=== PATIENT | female | born 1935 | race Caucasian/White ===

== ENCOUNTER 2017-04-15 10:32 | Day surgery (SDC) | payer MEDICARE ==
[~2017-04-15 10:32] MED LIST: LACTATED RINGERS 1,000 ML IV SCH
[2017-04-15] MEDS ORDERED: ALBUTEROL NEBULIZED 2.5 MG/3 ML INHALATION STA (11:27)
[2017-04-15] MEDS ORDERED: LIDOCAINE 2% (PF) 20 MG/ML 10 ML AMP INHALATION STA (11:27)
[2017-04-15] MEDS ORDERED: LIDOCAINE 2% (PF) 20 MG/ML 2 ML AMP INHALATION ONE (11:45)
[2017-04-15] MEDS ORDERED: LIDOCAINE 1% 20 ML VIAL (10MG/ML) FOR IV START INTRADERMA ONE (12:00)
[2017-04-15] MEDS ORDERED: PROPOFOL 10 MG/ML 20 ML VIAL IV ONE (12:02)
[2017-04-15] MEDS ORDERED: LIDOCAINE 1% INJ 10MG/ML (20 ML MDV) ONE (12:02)
[2017-04-15] MEDS ORDERED: LIDOCAINE 2% INJ 20 MG/ML INTRATRACH ONE (12:29)
--- NOTE | 2017-04-15 13:25 | P.PCN ---
Date of Procedure: 04/15/17 Preoperative Diagnosis: Recurrent asthma exacerbation, bronchitis Postoperative Diagnosis: Same Procedure(s) Performed: Flexible bronchoscopy, bronchial lavage of the lingula Anesthesia: MAC Surgeon: Moody Brice Estimated Blood Loss (ml): 0 Pathology: other Condition: stable Disposition: same day Operative Findings: This is a flexible bronchoscopy that was done in the bronchoscopy suite. This was done under conscious sedation. A timeout was obtained. A consent was signed. After achieving adequate sedation flexible scope was inserted to the right nostril. Examination of the posterior oropharynx the epiglottis and vocal cords was done. All of the upper airway structures were visualized and they're within normal limits. The epiglottis was within normal. Arytenoids were slightly swollen. The true vocal cords were also swollen and somewhat inflamed with some irregularities along the medial aspect of the vocal cords specially in the anterior one third. No polyps. No lesions. No tumors identified. A total of 2 mL of 1% Xylocaine was applied to the vocal cords and following that the bronchoscope was advanced into the upper trachea and examination of the tracheal bronchial tree was done. The visualized airways included the trachea, bilateral mainstem bronchi, right upper lobe bronchus, bronchus intermedius, right middle lobe bronchus, right lower lobe bronchus, left upper lobe bronchus, left lower lobe bronchus along with various segments and subsegments. There was diffuse inflammatory changes throughout the airways. The bronchial mucosa was inflamed and somewhat erythematous and few areas of scattered hemorrhagic spots were seen within the bronchial mucosal wall. Bronchoscope was wedged in the sputum of the lingula and bronchial lavage was done. A total of 80 mL of fluid was infused and 35 mL was suctioned back. At the end of the procedure the airway inspection was completed. No endobronchial tumors or lesions. Some loose secretions were encountered there were suctioned and aspirated without any major difficulties. No foreign bodies. Bronchoscope was removed and the patient was transferred recovery in stable condition. The bronchioloalveolar lavage will be sent for microbial analysis.
[2017-04-15 16:35] VITALS: BP 130/70; PULSE 73; RESP 16; TEMP 98.3
== END 2017-04-15 13:15 | disposition home or self-care (01) ==
LOC: ORWHC2ENDO 10:32
PROVIDERS: ATTEND Internal Medicine Critical Care Medicine
DX: J45.901 Unspecified asthma with (acute) exacerbation (principal); I26.99 Other pulmonary embolism without acute cor pulmonale; E03.9 Hypothyroidism, unspecified; E78.5 Hyperlipidemia, unspecified; M48.061 Spinal stenosis, lumbar region without neurogenic claudication; I10 Essential (primary) hypertension; Z79.01 Long term (current) use of anticoagulants; Z79.82 Long term (current) use of aspirin; Z79.891 Long term (current) use of opiate analgesic; Z79.51 Long term (current) use of inhaled steroids; Z79.52 Long term (current) use of systemic steroids; Z79.899 Other long term (current) drug therapy; Z87.891 Personal history of nicotine dependence
CPT/HCPCS: 94640; 88108; 88305; 31624; J2001 ×3; J2704

== ENCOUNTER → 2018-12-30 | Outpatient (CLI) | payer MEDICARE | END | disposition home or self-care (01) | LOC: LABWHC1 16:29 | PROVIDERS: ATTEND Internal Medicine Critical Care Medicine | DX: J45.40 Moderate persistent asthma, uncomplicated (principal) | CPT/HCPCS: 36415; 82785; 85008 ==

== ENCOUNTER 2019-07-10 09:47 | Observation (INO) | payer MEDICARE ==
[2019-07-10] MEDS ORDERED: SODIUM CHLORIDE 0.9% 1,000 ML IV ONE (09:56)
[2019-07-10] MEDS ORDERED: AMPICILLIN-SULBACTAM 3 GM in SODIUM CHLORIDE 0.9% 100 ML IVPB STA (09:56)
[2019-07-10] MEDS: SODIUM CHLORIDE 0.9% 1,000 ML IV SCH ×2 (10:13→20:38)
[2019-07-10 10:27] LABS: Basophils % (A) 0 %; Eosinophils # (A) 0.1 k/uL (0-0.7); Eosinophils % (A) 1 %; HCT 41.9 % (34.0-46.0); HGB 13.8 gm/dL (11.4-16.0); Lymphocytes # (A) 1.6 k/uL (1.0-4.8); Lymphocytes % (A) 12 %; MCH 30.6 pg (25.0-35.0); MCHC 32.8 g/dL (31.0-37.0); MCV 93.4 fL (80.0-100.0); Mean Platelet Volume 9.4; Monocytes # (A) 0.6 k/uL (0-1.0); Monocytes % (A) 4 %; Neutrophils # (A) 10.9 k/uL (1.3-7.7); Neutrophils % (A) 81 %; Platelet Count 199 k/uL (150-450); RBC 4.49 m/uL (3.80-5.40); RDW 13.8 % (11.5-15.5); WBC 13.4 k/uL (3.8-10.6)
--- NOTE | 2019-07-10 10:28 | ED ---
Extremity Problem HPI - General Stated complaint: cat bite Time Seen by Provider: 07/10/19 09:49 Source: EMS, RN notes reviewed, old records reviewed Mode of arrival: EMS Limitations: no limitations - History of Present Illness Initial comments: This is an 84-year-old female who presents today for evaluation with concern for cellulitis of her left forearm. Patient reports that she was bit by her cat 2 days ago. She was seen by her primary care doctor yesterday and was given updated tetanus and IM Rocephin. She was started on Augmentin. She's been taking those medications had a total of 3 doses of the Augmentin. She presents today via EMS for concern for worsening swelling. She denies any upper respiratory symptoms or cold symptoms at this time. Denies any fevers. - Related Data Home Medications Medication Instructions Recorded Confirmed Aspirin 81 mg PO HS 04/15/17 07/10/19 Atorvastatin [Lipitor] 20 mg PO HS 04/15/17 07/10/19 Levothyroxine Sodium [Synthroid] 50 mcg PO DAILY 04/15/17 07/10/19 Montelukast [Singulair] 10 mg PO HS 04/15/17 07/10/19 Ubidecarenone [Co Q-10] 200 mg PO HS 04/15/17 07/10/19 Warfarin Sodium [Coumadin] 3 mg PO MOWEFR 04/15/17 07/10/19 Amoxic-Pot Clav 875-125Mg 1 tab PO Q12HR 07/10/19 07/10/19 [Augmentin 875-125] Budesonide [Pulmicort] 0.5 mg INHALATION RT-BID 07/10/19 07/10/19 Cholecalciferol [Vitamin D3 (25 2,000 unit PO DAILY 07/10/19 07/10/19 Mcg = 1000 Iu)] Estrogens, Conjugated Cream 1 applicator VAGINAL DIRECTED 07/10/19 07/10/19 [Premarin Cream] Formoterol Fumarate [Perforomist] 20 mcg INHALATION RT-BID 07/10/19 07/10/19 Levalbuterol Hfa Inhaler [Xopenex 2 puff INHALATION RT-Q6H PRN 07/10/19 07/10/19 Hfa Inhaler] Metoprolol Succinate (ER) [Toprol 50 mg PO DAILY 07/10/19 07/10/19 Xl] Mupirocin 2% Oint [Bactroban 2% 1 applic TOPICAL DAILY 07/10/19 07/10/19 Oint] Omeprazole [PriLOSEC] 40 mg PO DAILY 07/10/19 07/10/19 Warfarin [Coumadin] 2 mg PO SUTUTHSA 07/10/19 07/10/19 cycloSPORINE [Restasis] 1 drop BOTH EYES BID 07/10/19 07/10/19 Allergies Allergy/AdvReac Type Severity Reaction Status Date / Time No Known Allergies Allergy Verified 07/10/19 11:00 Review of Systems ROS Statement: Those systems with pertinent positive or pertinent negative responses have been documented in the HPI. ROS Other: All systems not noted in ROS Statement are negative. Past Medical History Past Medical History: Asthma, Hypertension, Osteoarthritis (OA) Additional Past Medical History / Comment(s): SPINAL STENOSIS History of Any Multi-Drug Resistant Organisms: ESBL Date of last positivie culture/infection: 04/15/17 MDRO Source:: ESBL PLEURAL FLUID Past Surgical History: Appendectomy, Back Surgery, Hysterectomy Additional Past Surgical History / Comment(s): SPINAL FUSION OF L3 AND L4 Past Anesthesia/Blood Transfusion Reactions: No Reported Reaction Past Psychological History: No Psychological Hx Reported Smoking Status: Former smoker Past Alcohol Use History: None Reported Past Drug Use History: None Reported - Past Family History Mother Additional Family Medical History / Comment(s): ALZHEIMERS AND CERVICAL CANCER Father Family Medical History: Cancer Additional Family Medical History / Comment(s): LUNG CANCER General Exam Limitations: no limitations General appearance: alert, in no apparent distress Head exam: Present: atraumatic, normocephalic, normal inspection Eye exam: Present: normal appearance, PERRL, EOMI. Absent: scleral icterus, conjunctival injection, periorbital swelling ENT exam: Present: normal exam, mucous membranes moist Neck exam: Present: normal inspection. Absent: tenderness, meningismus, ly mphadenopathy Respiratory exam: Present: normal lung sounds bilaterally. Absent: respiratory distress, wheezes, rales, rhonchi, stridor Cardiovascular Exam: Present: regular rate GI/Abdominal exam: Present: soft, normal bowel sounds. Absent: distended, tenderness, guarding, rebound, rigid Extremities exam: Present: normal inspection, full ROM, normal capillary refill. Absent: tenderness, pedal edema, joint swelling, calf tenderness Left Shoulder Exam: Present: normal inspection, full ROM Upper Arm exam: Present: normal inspection, full ROM Elbow exam: Present: normal inspection, full ROM Forearm Wrist exam: Present: full ROM (Patient has evidence of erythema, swelling over the left forearm. There is evidence of puncture wounds on the dorsal left forearm. This is scabbed over at this time.), erythema (Patient has erythema extending up the forearm. ). Absent: normal inspection Hand Wrist exam: Present: normal inspection, full ROM Neuro motor exam: Present: wrist extension intact, thumb opposition intact, thumb IP flexion intact, thumb adduction intact, fingers 2-5 abduction intact Vascular: Present: normal capillary refill Back exam: Present: normal inspection Neurological exam: Present: alert, oriented X3, CN II-XII intact Psychiatric exam: Present: normal affect, normal mood Skin exam: Present: warm, dry, intact, normal color. Absent: rash Course Vital Signs 07/10/19 07/10/19 07/10/19 09:54 10:00 10:30 Temperature 98.0 F Pulse Rate 62 64 65 Respiratory 18 18 18 Rate Blood Pressure 93/62 93/62 96/55 O2 Sat by Pulse 95 96 97 Oximetry 07/10/19 11:00 Temperature Pulse Rate 63 Respiratory 18 Rate Blood Pressure 119/50 O2 Sat by Pulse 96 Oximetry Medical Decision Making - Medical Decision Making Patient is a 84-year-old female who presents today for evaluation for concern for left forearm cellulitis related to a cat bite 2 days ago. Patient reportedly had this worsening swelling yesterday. Patient was seen by PCP yesterday and was given IM Rocephin, T dab, and started on Augmentin. She's had 3 doses. She presents today with increased redness and swelling. Patient started on IV Unasyn. She does have some leukocytosis. She is given IV saline as well. She denies any other significant complaints at this time. - Lab Data Result diagrams: 07/10/19 10:05 07/10/19 10:05 Lab Results 07/10/19 07/10/19 07/10/19 Range/Units 10:05 10:05 10:05 WBC 13.4 H (3.8-10.6) k/uL RBC 4.49 (3.80-5.40) m/uL Hgb 13.8 (11.4-16.0) gm/dL Hct 41.9 (34.0-46.0) % MCV 93.4 (80.0-100.0) fL MCH 30.6 (25.0-35.0) pg MCHC 32.8 (31.0-37.0) g/dL RDW 13.8 (11.5-15.5) % Plt Count 199 (150-450) k/uL Neutrophils % 81 % Lymphocytes % 12 % Monocytes % 4 % Eosinophils % 1 % Basophils % 0 % Neutrophils # 10.9 H (1.3-7.7) k/uL Lymphocytes # 1.6 (1.0-4.8) k/uL Monocytes # 0.6 (0-1.0) k/uL Eosinophils # 0.1 (0-0.7) k/uL Basophils # 0.0 (0-0.2) k/uL Sodium 138 (137-145) mmol/L Potassium 4.3 (3.5-5.1) mmol/L Chloride 108 H (98-107) mmol/L Carbon Dioxide 23 (22-30) mmol/L Anion Gap 7 mmol/L BUN 25 H (7-17) mg/dL Creatinine 0.91 (0.52-1.04) mg/dL Est GFR (CKD-EPI)AfAm 66 (>60 ml/min/1.73 sqM) Est GFR (CKD-EPI)NonAf 57 (>60 ml/min/1.73 sqM) Glucose 116 H (74-99) mg/dL Plasma Lactic Acid Joseluis 1.4 (0.7-2.0) mmol/L Calcium 9.0 (8.4-10.2) mg/dL Total Bilirubin 0.9 (0.2-1.3) mg/dL AST 32 (14-36) U/L ALT 21 (4-34) U/L Alkaline Phosphatase 64 (38-126) U/L Total Protein 6.3 (6.3-8.2) g/dL Albumin 3.6 (3.5-5.0) g/dL Disposition Clinical Impression: Cellulitis of forearm, Cat bite involving extremity Disposition: ADMITTED IP TO THIS [facility] Condition: Stable Is patient prescribed a controlled substance at d/c from ED?: No Referrals: Rojelio Rodriguez MD [Primary Care Provider] - 1-2 days Time of Disposition: 11:21
--- NOTE | 2019-07-10 10:36 | XR ---
EXAMINATION TYPE: XR forearm LT DATE OF EXAM: 07/10/2019 CLINICAL HISTORY: pain TECHNIQUE: Frontal and lateral images of the left forearm are obtained. COMPARISON: None. FINDINGS: There is no acute fracture/dislocation evident. The joint spaces appear within normal limi ts. The overlying soft tissue appears unremarkable. IMPRESSION: There is no acute fracture or dislocation. ICD 10 NO FRACTURE, INITIAL EVALUATION
[2019-07-10 10:42] LABS: Albumin 3.6 g/dL (3.5-5.0); Potassium 4.3 mmol/L (3.5-5.1); Total Bilirubin 0.9 mg/dL (0.2-1.3); Total Protein 6.3 g/dL (6.3-8.2)
[2019-07-10] MEDS ORDERED: ACETAMINOPHEN TAB 500 MG TAB PO STA (11:14)
[2019-07-10] MEDS ORDERED: ONDANSETRON 4 MG/2 ML VIAL IVP PRN (11:21)
[2019-07-10] MEDS ORDERED: NALOXONE 0.4 MG/ML 1 ML VIAL IV PRN (11:21)
[2019-07-10] MEDS ORDERED: VANCOMYCIN IV PER PHARMACY 1 EACH MISC MISCELLANE PRN (11:23)
[2019-07-10] MEDS ORDERED: VANCOMYCIN 1,500 MG in SODIUM CHLORIDE 0.9% 250 ML IVPB STA (11:28)
[2019-07-10] MEDS ORDERED: ESTROGENS, CONJUGATED 0.625 MG/GM VAGINAL CREAM 42.5 GM TUBE VAGINAL SCH (11:45)
[2019-07-10 12:23] LABS: INR 1.8 (<1.2); Partial Thromboplastin Time 29.5 sec (22.0-30.0); Prothrombin Time 17.7 sec (9.0-12.0)
[2019-07-10] MEDS: ACETAMINOPHEN TAB 325 MG TAB PO PRN ×2 (17:38→23:36)
[2019-07-10] MEDS ORDERED: WARFARIN 3 MG TAB PO SCH (18:00)
[2019-07-10] MEDS ORDERED: WARFARIN 5 MG TAB PO ONE (18:00)
[2019-07-10] MEDS ORDERED: AMPICILLIN-SULBACTAM 3 GM in SODIUM CHLORIDE 0.9% 100 ML IVPB SCH (18:00)
[2019-07-10] MEDS: AMPICILLIN-SULBACTAM 3 GM in SODIUM CHLORIDE 0.9% 100 ML IVPB SCH (18:06)
--- NOTE | 2019-07-10 18:13 | P.HPIM ---
History of Present Illness H&P Date: 07/10/19 Chief Complaint: Cat bite History of presenting complaint: This is a pleasant 84-year-old patient of Dr. Rojelio Rodriguez. Chronic stable medical conditions include atrial fibrillation, asthma, GERD, hypertension, hyperlipidemia, osteoarthritis, chronically on Coumadin hypothyroid varicosities past stenosis. Patient has a domestic abscesses that for 15 years. Patient's can't jump on the bed and she was petting the cat and the cat bit her left forearm. The following day that is Wednesday she went to see her family doctor. She was given a shot of tetanus, IM ceftriaxone, and oral Augmentin. Redness bruising was carried get worse started extending above the elbow. Patient had fever or chills. Slight headache. Decreased appetite decided to come in to the ER. Patient not had a problem with her Before. Has been no change in the behavior of the cat. Review of systems: GEN.: Fever or chills tired EYES: None HEENT: None NECK: None RESPIRATORY: None CARDIOVASCULAR: None GASTROINTESTINAL: None GENITOURINARY: None MUSCULOSKELETAL: Joint pains LYMPHATICS: None HEMATOLOGICAL: None PSYCHIATRY: None NEUROLOGICAL: None Past medical history to include: Atypical fibrillation, asthma, DVT, GERD, hyperlipidemia, hypertension, osteoarthritis, PE, right leg DVT, 2 pound embolism, spinal stenosis, chronic low back pain, hiatal hernia, hypothyroid, varicosities. Social history: Lives alone. Does use a cane. Smoked from [id number]. No alcohol. Physical examination: VITAL SIGNS: 98.0, 62, 18, 93/62, 95% on room air] GENERAL: BMI 37.7, sitting up in bed, not in distress. EYES: Pupils equal. Conjunctiva normal. HEENT: External appearance of nose and ears normal, oral cavity grossly normal. NECK: JVD not raised; masses not palpable. HEART: First and second heart sounds are normal; no edema. LUNGS: Respiratory rate normal; clear to auscultation. ABDOMEN: Soft, nontender, liver spleen not palpable, no masses palpable. PSYCH: Alert and oriented x3; mood and affect normal EXTREMITY: Left upper extremity shows area of redness and tenderness plantar patel rface of the left forearm extending to above the wrist and proximally in: A don't above the elbow to the midarm. Patient has a skin marking. With some improvement since admission NEUROLOGICAL: Cranial nerves grossly intact; no facial asymmetry, power and sensation grossly intact. LYMPHATICS: No lymph nodes palpable in the axilla and neck INVESTIGATIONS, reviewed in the clinical context: White count 13.4 hemoglobin 13.8 platelets 199 INR 1.8 potassium 4.3 bun 25 creatinine 0.91 Left forearm [id number] Assessment: -Left forearm cat bite with secondary cellulitis and local hematoma because patient is on Coumadin having failed outpatient treatment with Augmentin. Patient did receive tetanus as outpatient. 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 Home medications resumed. We'll keep the left arm elevated above the level of the heart. Care was discussed with the patient question were answered. Coumadin/INR will be followed. Initially put IV fluids that'll be cut back now. Infectious disease Dr. Edward was consulted. Also topical Bactroban. Also use ice pack on the left forearm. Past Medical History Past Medical History: Atrial Fibrillation, Asthma, Deep Vein Thrombosis (DVT), GERD/Reflux, Hyperlipidemia, Hypertension, Osteoarthritis (OA), Pneumonia, Pulmonary Embolus (PE), Vascular Disorder Additional Past Medical History / Comment(s): Pt has had irregular heart beat in the past and thinks it was called atrial fibrillation, R leg DVT, 2 pulmonary embolisms, bronchitis, spinal stenosis, chronic low back pain, hiatal hernia, hypothyroid, varicosities, UTIs History of Any Multi-Drug Resistant Organisms: ESBL Date of last positivie culture/infection: 04/15/17 MDRO Source:: ESBL PLEURAL FLUID Past Surgical History: Appendectomy, Back Surgery, Cholecystectomy, Heart Catheterization, Hysterectomy, Orthopedic Surgery Additional Past Surgical History / Comment(s): Laminectomy with fusion L3-L4, pain clinic back procedures, R rotator cuff repair, bronchoscopy/BAL, EGD, colonoscopies, bilateral cataract removals. Past Anesthesia/Blood Transfusion Reactions: No Reported Reaction Smoking Status: Former smoker - Past Family History Mother Family Medical History: Cancer, Dementia Additional Family Medical History / Comment(s): Mother had cervical cancer. She was a smoker. Father Family Medical History: Cancer Additional Family Medical History / Comment(s): Father of lung cancer. He was a smoker. Medications and Allergies Home Medications Medication Instructions Recorded Confirmed Type Aspirin 81 mg PO HS 04/15/17 07/10/19 History Atorvastatin [Lipitor] 20 mg PO HS 04/15/17 07/10/19 History Levothyroxine Sodium [Synthroid] 50 mcg PO DAILY 04/15/17 07/10/19 History Montelukast [Singulair] 10 mg PO HS 04/15/17 07/10/19 History Ubidecarenone [Co Q-10] 200 mg PO HS 04/15/17 07/10/19 History Warfarin Sodium [Coumadin] 3 mg PO MOWEFR 04/15/17 07/10/19 History Amoxic-Pot Clav 875-125Mg 1 tab PO Q12HR 07/10/19 07/10/19 History [Augmentin 875-125] Budesonide [Pulmicort] 0.5 mg INHALATION RT-BID 07/10/19 07/10/19 History Cholecalciferol [Vitamin D3 (25 2,000 unit PO DAILY 07/10/19 07/10/19 History Mcg = 1000 Iu)] Estrogens, Conjugated Cream 1 applicator VAGINAL DIRECTED 07/10/19 07/10/19 History [Premarin Cream] Formoterol Fumarate [Perforomist] 20 mcg INHALATION RT-BID 07/10/19 07/10/19 History Levalbuterol Hfa Inhaler [Xopenex 2 puff INHALATION RT-Q6H PRN 07/10/19 07/10/19 History Hfa Inhaler] Metoprolol Succinate (ER) [Toprol 50 mg PO DAILY 07/10/19 07/10/19 History Xl] Mupirocin 2% Oint [Bactroban 2% 1 applic TOPICAL DAILY 07/10/19 07/10/19 History Oint] Omeprazole [PriLOSEC] 40 mg PO DAILY 07/10/19 07/10/19 History Warfarin [Coumadin] 2 mg PO SUTUTHSA 07/10/19 07/10/19 History cycloSPORINE [Restasis] 1 drop BOTH EYES BID 07/10/19 07/10/19 History Allergies Allergy/AdvReac Type Severity Reaction Status Date / Time No Known Allergies Allergy Verified 07/10/19 11:00 Physical Exam Vitals: Vital Signs Temp Pulse Pulse Resp BP BP Pulse Ox 07/10/19 13:00 97.8 F 52 L 18 107/50 97 07/10/19 12:31 97.8 F 50 L 14 94/44 95 07/10/19 12:06 98.2 F 59 L 18 131/63 98 07/10/19 11:00 63 18 119/50 96 07/10/19 10:30 65 18 96/55 97 07/10/19 10:00 64 18 93/62 96 07/10/19 09:54 98.0 F 62 18 93/62 95 Intake and Output 07/10/19 07/10/19 07/10/19 06:59 14:59 22:59 Other: Weight 87.543 kg Results CBC & Chem 7: 07/10/19 10:05 07/10/19 10:05 Labs: Abnormal Lab Results - Last 24 Hours (Table) 07/10/19 07/10/19 07/10/19 Range/Units 10:05 10:05 10:05 WBC 13.4 H (3.8-10.6) k/uL Neutrophils # 10.9 H (1.3-7.7) k/uL PT 17.7 H (9.0-12.0) sec INR 1.8 H (<1.2) Chloride 108 H (98-107) mmol/L BUN 25 H (7-17) mg/dL Glucose 116 H (74-99) mg/dL Thrombosis Risk Factor Assmnt - Choose All That Apply Any of the Below Risk Factors Present?: Yes Each Factor Represents 1 point: Obesity (BMI >25) Other Risk Factors: Yes Each Risk Factor Represents 3 Points: Age 75 years or older, History of DVT/PE Other congenital or acquired thrombophilia - If yes, enter type in comment: No Thrombosis Risk Factor Assessment Total Risk Factor Score: 7 Thrombosis Risk Factor Assessment Level: High Risk
[2019-07-10] MEDS: BUDESONIDE 0.5 MG/2 ML NEBU INHALATION SCH (19:48)
[2019-07-10] MEDS: FORMOTEROL FUMARATE 20 MCG/2 ML NEBU INHALATION SCH (19:48)
[2019-07-10] MEDS: MONTELUKAST 10 MG TAB PO SCH (20:36)
[2019-07-10] MEDS: ASPIRIN 81 MG PO SCH (20:36)
[2019-07-10] MEDS: ATORVASTATIN 20 MG TAB PO SCH (20:36)
[2019-07-10] MEDS: cycloSPORINE 0.05% OPHTH 0.4 ML DROPERETTE BOTH EYES SCH (20:38)
[2019-07-10] MEDS ORDERED: NON FORMULARY DRUG (Ubidecarenone [Co Q-10] 200 MG) PO SCH (21:00)
--- NOTE | 2019-07-10 22:45 | P.CONS ---
History of Present Illness - Reason for Consult Consult date: 07/10/19 left forearm cellulitis Requesting physician: Mynor Coburn - Chief Complaint left arm pain and redness x 2 days - History of Present Illness Patient is 84-year female who apparently was bitten by her pet cat about 2 days ago on her left forearm patient denies significant bleeding from that site the next day patient noticed there was some swelling and redness p atient went to see her primary care physician yesterday where she was given updated tetanus shot but a dose of IM Rocephin and the patient was given oral Augmentin patient has taken 3 doses so far at this morning she noticed her left arm to be getting more swollen and right and painful patient describes tomorrow with a leaking pain about 4 to 5-10 and no radiation with worsening swelling redness and pain the patient presented to the hospital patient denies high-grade fever did have some chills no nausea no with no bowel apparently diarrhea on arrival to the ER the patient was afebrile white count was elevated at 13.4 INR 1.8 liver enzymes are normal lactic acid was normal x-rays of the left forearm did not show any bony changes patient has been started on Unasyn 3 g every 8 and vancomycin admitted to the hospital infectious disease was consulted for further recommendation about antibiotic therapy. Review of Systems Positive point has been mentioned in HPI rest of the systems are negative Past Medical History Past Medical History: Atrial Fibrillation, Asthma, Deep Vein Thrombosis (DVT), GERD/Reflux, Hyperlipidemia, Hypertension, Osteoarthritis (OA), Pneumonia, Pulmonary Embolus (PE), Vascular Disorder Additional Past Medical History / Comment(s): Pt has had irregular heart beat in the past and thinks it was called atrial fibrillation, R leg DVT, 2 pulmonary embolisms, bronchitis, spinal stenosis, chronic low back pain, hiatal hernia, hypothyroid, varicosities, UTIs History of Any Multi-Drug Resistant Organisms: ESBL Year Discovered:: 04/15/17 MDRO Source:: ESBL PLEURAL FLUID Past Surgical History: Appendectomy, Back Surgery, Cholecystectomy, Heart Catheterization, Hysterectomy, Orthopedic Surgery Additional Past Surgical History / Comment(s): Laminectomy with fusion L3-L4, pain clinic back procedures, R rotator cuff repair, bronchoscopy/BAL, EGD, colonoscopies, bilateral cataract removals. Past Anesthesia/Blood Transfusion Reactions: No Reported Reaction Smoking Status: Former smoker - Past Family History Mother Family Medical History: Cancer, Dementia Additional Family Medical History / Comment(s): Mother had cervical cancer. She was a smoker. Father Family Medical History: Cancer Additional Family Medical History / Comment(s): Father of lung cancer. He was a smoker. Medications and Allergies Home Medications Medication Instructions Recorded Confirmed Type Aspirin 81 mg PO HS 04/15/17 07/10/19 History Atorvastatin [Lipitor] 20 mg PO HS 04/15/17 07/10/19 History Levothyroxine Sodium [Synthroid] 50 mcg PO DAILY 04/15/17 07/10/19 History Montelukast [Singulair] 10 mg PO HS 04/15/17 07/10/19 History Ubidecarenone [Co Q-10] 200 mg PO HS 04/15/17 07/10/19 History Warfarin Sodium [Coumadin] 3 mg PO MOWEFR 04/15/17 07/10/19 History Amoxic-Pot Clav 875-125Mg 1 tab PO Q12HR 07/10/19 07/10/19 History [Augmentin 875-125] Budesonide [Pulmicort] 0.5 mg INHALATION RT-BID 07/10/19 07/10/19 History Cholecalciferol [Vitamin D3 (25 2,000 unit PO DAILY 07/10/19 07/10/19 History Mcg = 1000 Iu)] Estrogens, Conjugated Cream 1 applicator VAGINAL DIRECTED 07/10/19 07/10/19 History [Premarin Cream] Formoterol Fumarate [Perforomist] 20 mcg INHALATION RT-BID 07/10/19 07/10/19 History Levalbuterol Hfa Inhaler [Xopenex 2 puff INHALATION RT-Q6H PRN 07/10/19 07/10/19 History Hfa Inhaler] Metoprolol Succinate (ER) [Toprol 50 mg PO DAILY 07/10/19 07/10/19 History Xl] Mupirocin 2% Oint [Bactroban 2% 1 applic TOPICAL DAILY 07/10/19 07/10/19 History Oint] Omeprazole [PriLOSEC] 40 mg PO DAILY 07/10/19 07/10/19 History Warfarin [Coumadin] 2 mg PO SUTUTHSA 07/10/19 07/10/19 History cycloSPORINE [Restasis] 1 drop BOTH EYES BID 07/10/19 07/10/19 History Allergies Allergy/AdvReac Type Severity Reaction Status Date / Time No Known Allergies Allergy Verified 07/10/19 11:00 Physical Exam Vitals: Vital Signs Temp Pulse Pulse Resp BP BP Pulse Ox 07/10/19 12:31 97.8 F 50 L 14 94/44 95 07/10/19 12:06 98.2 F 59 L 18 131/63 98 07/10/19 11:00 63 18 119/50 96 07/10/19 10:30 65 18 96/55 97 07/10/19 10:00 64 18 93/62 96 07/10/19 09:54 98.0 F 62 18 93/62 95 Intake and Output 07/10/19 07/10/19 07/10/19 06:59 14:59 22:59 Other: Weight 87.543 kg GENERAL DESCRIPTION: Elderly female lying in bed, no distress. No tachypnea or accessory muscle of respiration use. HEENT: Shows Pallor , no scleral icterus. Oral mucous membrane is dry. NECK: Trachea central, no thyromegaly. LUNGS: Unlabored breathing. Clear to auscultation anteriorly. No wheeze or crackle. HEART: S1, S2, regular rate and rhythm. ABDOMEN: Soft, no tenderness , guarding or rigidity EXTREMITIES: Left forearm is swollen and red warm to touch no induration or any drainage. SKIN: No rash, no masses palpable. NEUROLOGICAL: The patient is awake, alert, oriented x3, mood and affect normal. Results CBC & Chem 7: 07/10/19 10:05 07/10/19 10:05 Labs: Abnormal Lab Results - Last 24 Hours (Table) 07/10/19 07/10/19 07/10/19 Range/Units 10:05 10:05 10:05 WBC 13.4 H (3.8-10.6) k/uL Neutrophils # 10.9 H (1.3-7.7) k/uL PT 17.7 H (9.0-12.0) sec INR 1.8 H (<1.2) Chloride 108 H (98-107) mmol/L BUN 25 H (7-17) mg/dL Glucose 116 H (74-99) mg/dL Assessment and Plan Assessment: patient presenting to the hospital with left forearm cellulitis from a cat bite and failing outpatient oral Augmentin more likely because of the burden of disease clinic suspicion low for gram-positive infection such as MRSA (1) Cat bite involving extremity Current Visit: Yes Status: Acute Code(s): KST3743 - SNOMED Code(s): 283 367887 (2) Cellulitis of forearm Current Visit: Yes Status: Acute Code(s): L03.119 - CELLULITIS OF UNSP ECIFIED PART OF LIMB SNOMED Code(s): 40109707 Plan: 1-we will adjust the dose of Unasyn to 3 g every 6 hours 2-discontinue the vancomycin 3-area of the redness has been marked and is already receding And will monitor closely We will follow on clinical condition and cultures to further adjust medication if needed Thank you for this consultation we will follow the patient along with you Time with Patient: Greater than 30
[2019-07-11] MEDS: AMPICILLIN-SULBACTAM 3 GM in SODIUM CHLORIDE 0.9% 100 ML IVPB SCH ×5 (00:36→23:29)
[2019-07-11] MEDS: ACETAMINOPHEN TAB 325 MG TAB PO PRN ×2 (05:41→14:31)
[2019-07-11] MEDS: LEVOTHYROXINE 50 MCG TAB PO SCH (05:41)
[2019-07-11 07:08] LABS: INR 2.4 (<1.2); Prothrombin Time 23.2 sec (9.0-12.0)
[2019-07-11] MEDS: BUDESONIDE 0.5 MG/2 ML NEBU INHALATION SCH ×2 (07:08→19:02)
[2019-07-11] MEDS: ALBUTEROL NEBULIZED 2.5 MG/3 ML INHALATION PRN ×2 (07:08→19:02)
[2019-07-11] MEDS: FORMOTEROL FUMARATE 20 MCG/2 ML NEBU INHALATION SCH ×2 (07:08→19:15)
[2019-07-11] MEDS: PANTOPRAZOLE 40 MG TABLET PO SCH (08:12)
[2019-07-11] MEDS: CHOLECALCIFEROL 1,000 UNIT TAB PO SCH (08:12)
[2019-07-11] MEDS: METOPROLOL SUCCINATE (ER) 50 MG TAB.ER.24H PO SCH (08:12)
[2019-07-11] MEDS: SODIUM CHLORIDE 0.9% 1,000 ML IV SCH ×3 (08:13→23:29)
[2019-07-11] MEDS: MUPIROCIN 2% OINT 22 GM TUBE TOPICAL SCH (08:13)
[2019-07-11 08:42] LABS: Basophils % (A) 0 %; Eosinophils # (A) 0.1 k/uL (0-0.7); Eosinophils % (A) 1 %; HCT 42.3 % (34.0-46.0); HGB 13.7 gm/dL (11.4-16.0); Lymphocytes # (A) 1.2 k/uL (1.0-4.8); Lymphocytes % (A) 13 %; MCHC 32.3 g/dL (31.0-37.0); MCV 95.8 fL (80.0-100.0); Mean Platelet Volume 11.2; Monocytes # (A) 0.6 k/uL (0-1.0); Monocytes % (A) 6 %; Neutrophils # (A) 7.2 k/uL (1.3-7.7); Neutrophils % (A) 77 %; Platelet Count 130 k/uL (150-450); RBC 4.41 m/uL (3.80-5.40); RDW 13.8 % (11.5-15.5); WBC 9.3 k/uL (3.8-10.6)
[2019-07-11] MEDS ORDERED: VANCOMYCIN 1,500 MG in SODIUM CHLORIDE 0.9% 250 ML IVPB SCH (09:00)
[2019-07-11] MEDS ORDERED: PANTOPRAZOLE 40 MG/10 ML VIAL IV SCH (09:00)
[2019-07-11] MEDS: cycloSPORINE 0.05% OPHTH 0.4 ML DROPERETTE BOTH EYES SCH ×2 (09:15→20:05)
[2019-07-11 10:18] VITALS: BMI 37.7
[2019-07-11] MEDS ORDERED: WARFARIN 2 MG TAB PO SCH (18:00)
[2019-07-11] MEDS ORDERED: WARFARIN 2 MG TAB PO ONE (18:00)
--- NOTE | 2019-07-11 19:50 | P.PN ---
Progress Note - Text Progress Note Date: 07/11/19 Chief Complaint: Cat bite History of presenting complaint: This is a pleasant 84-year-old patient of Dr. Rojelio Rodriguez. Chronic stable medical conditions include atrial fibrillation, asthma, GERD, hypertension, hyperlipidemia, osteoarthritis, chronically on Coumadin hypothyroid varicosities past stenosis. Patient has a domestic abscesses that for 15 years. Patient's can't jump on the bed and she was petting the cat and the cat bit her left forearm. The following day that is Wednesday she went to see her family doctor. She was given a shot of tetanus, IM ceftriaxone, and oral Augmentin. Redness bruising was carried get worse started extending above the elbow. Patient had fever or chills. Slight headache. Decreased appetite decided to come in to the ER. Patient not had a problem with her Before. Has been no change in the behavior of the cat. Admitted with-acute cellulitis from cat bite having failed outpatient treatment. Started on IV Unasyn and local Bactroban. Today-feeling better. Redness is starting to go down. He swelling. No fever no chills. Review of systems: Was done for constitutional, cardiovascular, GI, pulmonary. relevant finding as above Active Medications Acetaminophen (Tylenol Tab) 650 mg PO Q6HR PRN PRN Reason: Mild Pain or Fever > 100.5 Last Admin: 07/11/19 14:31 Dose: 650 mg Documented by: Albuterol Sulfate (Ventolin Nebulized) 2.5 mg INHALATION RT-Q6H PRN PRN Reason: Shortness Of Breath Last Admin: 07/11/19 19:02 Dose: 2.5 mg Documented by: Aspirin (Aspirin) 81 mg PO [facility] Last Admin: 07/10/19 20:36 Dose: 81 mg Documented by: Atorvastatin Calcium (Lipitor) 20 mg PO [facility] Last Admin: 07/10/19 20:36 Dose: 20 mg Documented by: Budesonide (Pulmicort) 0.5 mg INHALATION RT-BID [facility] Last Admin: 07/11/19 19:02 Dose: 0.5 mg Documented by: Cholecalciferol (Vitamin D3 (25 Mcg = 1000 Iu)) 2,000 unit PO DAILY [facility] Last Admin: 07/11/19 08:12 Dose: 2,000 unit Documented by: Cyclosporine (Restasis 0.05% Ophth Soln) 1 drops BOTH EYES BID [facility] Last Admin: 07/11/19 09:15 Dose: 1 drops Documented by: Formoterol Fumarate (Perforomist) 20 mcg INHALATION RT-BID [facility] Last Admin: 07/11/19 19:15 Dose: 20 mcg Documented by: Sodium Chloride (Saline 0.9%) 1,000 mls @ 100 mls/hr IV .Q10H [facility] Last Admin: 07/11/19 14:31 Dose: 100 mls/hr Documented by: Ampicillin Sodium/Sulbactam (Sodium 3 gm/ Sodium Chloride) 100 mls @ 200 mls/hr IVPB Q6H [facility] Last Admin: 07/11/19 18:00 Dose: 200 mls/hr Documented by: Levothyroxine Sodium (Synthroid) 50 mcg PO DAILY@0630 [facility] Last Admin: 07/11/19 05:41 Dose: 50 mcg Documented by: Metoprolol Succinate (Toprol Xl) 50 mg PO DAILY [facility] Last Admin: 07/11/19 08:12 Dose: 50 mg Documented by: Miscellaneous Information (Coumadin Per Pharmacy) 0 each MISCELLANE DIRECTED PRN PRN Reason: PHARMACY DOSING WARFARIN Montelukast Sodium (Singulair) 10 mg PO HS [facility] Last Admin: 07/10/19 20:36 Dose: 10 mg Documented by: Mupirocin (Bactroban Oint) 1 applic TOPICAL DAILY [facility] Last Admin: 07/11/19 08:13 Dose: 1 applic Documented by: Naloxone HCl (Narcan) 0.2 mg IV Q2M PRN PRN Reason: Opioid Reversal Ondansetron HCl (Zofran) 4 mg IVP Q8HR PRN PRN Reason: Nausea And Vomiting Pantoprazole Sodium (Protonix) 40 mg PO AC-BRKFST [facility] Last Admin: 07/11/19 08:12 Dose: 40 mg Documented by: Physical examination: VITAL SIGNS: 98.1, 55, 15, 103/69, 92% on room air GENERAL: BMI 37.7, sitting up, more comfortable today EYES: Pupils equal. Conjunctiva normal. HEENT: External appearance of nose and ears normal, oral cavity grossly normal. NECK: JVD not raised; masses not palpable. HEART: First and second heart sounds are normal; no edema. LUNGS: Respiratory rate normal; clear to auscultation. ABDOMEN: Soft, nontender, liver spleen not palpable, no masses palpable. PSYCH: Alert and oriented x3; mood and affect normal EXTREMITY: Left upper extremity shows area of redness and tenderness plantar surface of the left forearm extending to above the wrist and proximally in: A don't above the elbow to the midarm. Patient has a skin marking.-Overall improvement from yesterday INVESTIGATIONS, reviewed in the clinical context: White count 9.3 hemoglobin 13.7 INR 2.4 Previous testing White count 13.4 hemoglobin 13.8 platelets 199 INR 1.8 potassium 4.3 bun 25 creatinine 0.91 Left forearm [id number] Assessment: -Left forearm cat bite with secondary cellulitis and local hematoma because patient is on Coumadin having failed outpatient treatment with Augmentin. 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 Clinically improving. Discussed with the patient. Possibly another 24 hours of IV antibiotic. Follow with ID. Discussed with patient
[2019-07-11] MEDS: MONTELUKAST 10 MG TAB PO SCH (20:04)
[2019-07-11] MEDS: ATORVASTATIN 20 MG TAB PO SCH (20:04)
[2019-07-11] MEDS: ASPIRIN 81 MG PO SCH (20:04)
--- NOTE | 2019-07-11 20:19 | PN ---
PROGRESS NOTE DATE OF SERVICE: 07/11/2019 REASON FOR FOLLOWUP: Left forearm cat bite cellulitis. INTERVAL HISTORY: The patient is currently afebrile. The patient is breathing comfortably. The patient denies having any chest pain or shortness of breath or cough. No nausea, vomiting or abdominal pain. Overall pain and swelling to the left arm have decreased in intensity. PHYSICAL EXAMINATION: Blood pressure 103/69 with a pulse of 55, temperature 98.1. She is 92% on room air. General description is an elderly female lying in bed in no distress. RESPIRATORY SYSTEM: Unlabored breathing. Clear to auscultation anteriorly. HEART: S1, S2. Regular rate and rhythm. ABDOMEN: Soft. No tenderness. Left forearm swelling and redness have decreased. LABS: Hemoglobin 13.7, white count 9.3. INR 2.4. DIAGNOSTIC IMPRESSION AND PLAN: Patient with left forearm cat bite cellulitis, clinically responding to IV Unasyn; to continue for another 24 hours. If the patient continues to improve, to finish therapy with oral Augmentin. Monitor her clinical course closely. MMODL / IJN: [id number] /
[2019-07-12] MEDS: ACETAMINOPHEN TAB 325 MG TAB PO PRN (04:26)
[2019-07-12 04:58] VITALS: BP 121/75; RESP 16; TEMP 98.1
[2019-07-12] MEDS: AMPICILLIN-SULBACTAM 3 GM in SODIUM CHLORIDE 0.9% 100 ML IVPB SCH ×2 (05:06→11:50)
[2019-07-12] MEDS: LEVOTHYROXINE 50 MCG TAB PO SCH (05:06)
[2019-07-12 07:48] LABS: INR 2.1 (<1.2); Prothrombin Time 20.3 sec (9.0-12.0)
[2019-07-12] MEDS: PANTOPRAZOLE 40 MG TABLET PO SCH (07:53)
[2019-07-12] MEDS: CHOLECALCIFEROL 1,000 UNIT TAB PO SCH (07:53)
[2019-07-12] MEDS: cycloSPORINE 0.05% OPHTH 0.4 ML DROPERETTE BOTH EYES SCH (07:54)
[2019-07-12] MEDS: METOPROLOL SUCCINATE (ER) 50 MG TAB.ER.24H PO SCH (07:54)
[2019-07-12] MEDS: MUPIROCIN 2% OINT 22 GM TUBE TOPICAL SCH (07:55)
[2019-07-12] MEDS: LOPERAMIDE 2 MG CAP PO PRN ×2 (08:09→13:32)
[2019-07-12] MEDS: FORMOTEROL FUMARATE 20 MCG/2 ML NEBU INHALATION SCH (08:22)
[2019-07-12] MEDS: BUDESONIDE 0.5 MG/2 ML NEBU INHALATION SCH (08:22)
[2019-07-12] MEDS: ALBUTEROL NEBULIZED 2.5 MG/3 ML INHALATION PRN (08:22)
[2019-07-12 08:49] VITALS: PULSE 75
[2019-07-12] MEDS: SODIUM CHLORIDE 0.9% 1,000 ML IV SCH (11:50)
[2019-07-12] MEDS ORDERED: CHOLESTYRAMINE (WITH SUGAR) 4 GM PACKET PO SCH (13:53)
--- NOTE | 2019-07-12 14:49 | PN ---
PROGRESS NOTE DATE OF SERVICE: 07/12/2019 REASON FOR FOLLOWUP: 1. Left arm cat bite cellulitis. 2. Diarrhea, antibiotic associated. INTERVAL HISTORY: The patient is currently afebrile. Patient is breathing comfortably. Denies having any chest pain, cough. Left arm swelling and redness have improved. Has been complaining of diarrhea with multiple loose stools, no blood or mucus in the stool. PHYSICAL EXAMINATION: Blood pressure 121/75 with a pulse of 73, temperature 98.1, she is 97% on room air. General description is an elderly female up in the bed in no distress. The left upper extremity swelling and redness has decreased. LUNGS: Unlabored breathing, clear to auscultation anteriorly. HEART: S1, S2. Regular rate and rhythm. LABS: Creatinine 0.78. INR of 2.1. DIAGNOSTIC IMPRESSION AND PLAN: 1. Patient with left arm cat bite cellulitis. Overall clinical improvement, to finish therapy with oral Augmentin the patient already has. 2. Diarrhea, antibiotic associated. She will be given Questran as needed for symptomatic relief. MMODL / IJN: [id number] /
[2019-07-12] MEDS ORDERED: WARFARIN 3 MG TAB PO ONE (18:00)
--- NOTE | 2019-07-13 00:48 | P.DS ---
Providers Date of admission: 07/10/19 11:39 Attending physician: Mynor Coburn Consults: 07/10/19 11:27 Consult Physician Routine Consulting Provider: Tala Edward Consult Reason/Comments: Outpatient treatment failure for cat Bite left forearm Do you want consulting provider notified?: Yes Primary care physician: [facility] Hospital Course: Diagnoses: -Left forearm cat bite with secondary cellulitis and local hematoma because patient is on Coumadin having failed outpatient treatment with Augmentin. 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 Patient was cleared for discharge by ID team on Augmentin orally which confirmed to me by the patient she already has, patient told me she does not want any prescription. Also patient is on warfarin for a history of A. fib, her INR is therapeutic at 2.1, patient has warfarin at home and she does not a prescription as well. Patient was cleared for discharge by ID team. Patient will be discharged for course of oral Augmentin Problems and management plan were discussed with the patient and he verbalized understanding and acceptance Patient was found stable and can be discharged home however he needs follow-up as an outpatient. Patient was instructed to follow up with PCP within one week and patient agrees Gen: patient is a AAOx3, no distress CVS: S1-S2, RRR, no murmur Lungs: B/L CTA, no wheezing Abdomen: soft, no distention, no tenderness, positive bowel sounds Extremity: no leg edema . left Time spent more than 35 minutes Patient Condition at Discharge: Stable Plan - Discharge Summary Discharge Rx Participant: No New Discharge Prescriptions: New Loperamide [Imodium] 2 mg PO QID PRN 2 Days #10 cap PRN Reason: Diarrhea Acetaminophen Tab [Tylenol] 650 mg PO Q6HR PRN tab PRN Reason: Mild Pain Or Fever > 100.5 Continue Warfarin Sodium [Coumadin] 3 mg PO MOWEFR Ubidecarenone [Co Q-10] 200 mg PO HS Montelukast [Singulair] 10 mg PO HS Levothyroxine Sodium [Synthroid] 50 mcg PO DAILY Atorvastatin [Lipitor] 20 mg PO HS Aspirin 81 mg PO HS Budesonide [Pulmicort] 0.5 mg INHALATION RT-BID Cholecalciferol [Vitamin D3 (25 Mcg = 1000 Iu)] 2,000 unit PO DAILY Formoterol Fumarate [Perforomist] 20 mcg INHALATION RT-BID Levalbuterol Hfa Inhaler [Xopenex Hfa Inhaler] 2 puff INHALATION RT-Q6H PRN PRN Reason: Shortness Of Breath Metoprolol Succinate (ER) [Toprol XL] 50 mg PO DAILY Omeprazole [PriLOSEC] 40 mg PO DAILY Warfarin [Coumadin] 2 mg PO SUTUTHSA cycloSPORINE [Restasis] 1 drop BOTH EYES BID Mupirocin 2% Oint [Bactroban 2% Oint] 1 applic TOPICAL DAILY Estrogens, Conjugated Cream [Premarin Cream] 1 applicator VAGINAL DIRECTED Amoxic-Pot Clav 875-125Mg [Augmentin 875-125] 1 tab PO Q12HR Discharge Medication List Aspirin 81 mg PO HS 04/15/17 [History] Atorvastatin [Lipitor] 20 mg PO HS 04/15/17 [History] Levothyroxine Sodium [Synthroid] 50 mcg PO DAILY 04/15/17 [History] Montelukast [Singulair] 10 mg PO HS 04/15/17 [History] Ubidecarenone [Co Q-10] 200 mg PO HS 04/15/17 [History] Warfarin Sodium [Coumadin] 3 mg PO MOWEFR 04/15/17 [History] Amoxic-Pot Clav 875-125Mg [Augmentin 875-125] 1 tab PO Q12HR 07/10/19 [History] Budesonide [Pulmicort] 0.5 mg INHALATION RT-BID 07/10/19 [History] Cholecalciferol [Vitamin D3 (25 Mcg = 1000 Iu)] 2,000 unit PO DAILY 07/10/19 [History] Estrogens, Conjugated Cream [Premarin Cream] 1 applicator VAGINAL DIRECTED 07/10/19 [History] Formoterol Fumarate [Perforomist] 20 mcg INHALATION RT-BID 07/10/19 [History] Levalbuterol Hfa Inhaler [Xopenex Hfa Inhaler] 2 puff INHALATION RT-Q6H PRN 07/10/19 [History] Metoprolol Succinate (ER) [Toprol XL] 50 mg PO DAILY 07/10/19 [History] Mupirocin 2% Oint [Bactroban 2% Oint] 1 applic TOPICAL DAILY 07/10/19 [History] Omeprazole [PriLOSEC] 40 mg PO DAILY 07/10/19 [History] Warfarin [Coumadin] 2 mg PO SUTUTHSA 07/10/19 [History] cycloSPORINE [Restasis] 1 drop BOTH EYES BID 07/10/19 [History] Acetaminophen Tab [Tylenol] 650 mg PO Q6HR PRN tab 07/12/19 [Rx] Loperamide [Imodium] 2 mg PO QID PRN 2 Days #10 cap 07/12/19 [Rx] Follow up Appointment(s)/Referral(s): Rojelio Rodriguez MD [Primary Care Provider] - 1-2 days (PLEASE CALL AND SCHEDULE APPOINTMENT) Tala Edward MD [STAFF PHYSICIAN] - 1 Week (PLEASE CALL AND SCHEDULE APPOINTMENT) Patient Instructions/Handouts: Animal Bite (DC), Cellulitis (DC) Activity/Diet/Wound Care/Special Instructions: Heart heathy diet Activity is limited until follow up with doctor FINISH ANTIBIOTIC PRESCRIPTION FROM HOME. Discharge Disposition: HOME SELF-CARE
== END 2019-07-12 14:08 | disposition home or self-care (01) ==
LOC: EC 09:47 → 6NMEDSUR 11:39
PROVIDERS: ADMIT Hospitalist; ATTEND Hospitalist
DX: S41.152A Open bite of left upper arm, initial encounter (principal); L03.114 Cellulitis of left upper limb; W55.01XA Bitten by cat, initial encounter; E03.9 Hypothyroidism, unspecified; E66.9 Obesity, unspecified; E78.5 Hyperlipidemia, unspecified; G89.29 Other chronic pain; I10 Essential (primary) hypertension; I48.19 Other persistent atrial fibrillation; J45.20 Mild intermittent asthma, uncomplicated; K21.9 Gastro-esophageal reflux disease without esophagitis; K44.9 Diaphragmatic hernia without obstruction or gangrene; M19.91 Primary osteoarthritis, unspecified site; M48.00 Spinal stenosis, site unspecified; Z68.37 Body mass index [BMI] 37.0-37.9, adult; Z79.01 Long term (current) use of anticoagulants; Z79.82 Long term (current) use of aspirin; Z79.890 Hormone replacement therapy; Z79.899 Other long term (current) drug therapy; Z80.1 Family history of malignant neoplasm of trachea, bronchus and lung; Z80.49 Family history of malignant neoplasm of other genital organs; Z82.0 Family history of epilepsy and other diseases of the nervous system; I27.82 Chronic pulmonary embolism; I82.501 Chronic embolism and thrombosis of unspecified deep veins of right lower extremity; Z87.891 Personal history of nicotine dependence; Z90.710 Acquired absence of both cervix and uterus; Z98.1 Arthrodesis status; Z16.12 Extended spectrum beta lactamase (ESBL) resistance; K52.1 Toxic gastroenteritis and colitis; T36.95XA Adverse effect of unspecified systemic antibiotic, initial encounter
CPT/HCPCS: 96366 ×3; 96367; 96365; 99285; 36415; 94640 ×6; 80053; 82565 ×2; 83605; 85025 ×2; 85610 ×3; 85730; 87040; 73090; G0378 ×3; J3370; J0295 ×3

== ENCOUNTER → 2020-12-19 | Outpatient (CLI) | payer MEDICARE | END | disposition home or self-care (01) | LOC: LABWHC1 10:31 | PROVIDERS: ATTEND Internal Medicine Critical Care Medicine | DX: J44.9 Chronic obstructive pulmonary disease, unspecified (principal) | CPT/HCPCS: 36415; 85008 ==

== ENCOUNTER 2022-02-24 20:02 | Inpatient (IN) | payer MEDICARE ==
[2022-02-24] MEDS ORDERED: SODIUM CHLORIDE 0.9% 1,000 ML IV STA (21:15)
--- NOTE | 2022-02-24 21:34 | ED ---
URI HPI - General Chief Complaint: Upper Respiratory Infection Stated Complaint: LUCA Time Seen by Provider: 02/24/22 21:14 Source: patient, RN notes reviewed, old records reviewed Mode of arrival: wheelchair Limitations: no limitations - History of Present Illness Initial Comments: This is an 87-year-old female DF for evaluation patient presents today for evaluation regards to shortness of breath unable to catch her breath. Patient does have history of some COPD mild nausea no vomiting. Patient has been having fevers. MD Complaint: cough, nasal congestion -: days(s) Severity: moderate Severity scale (1-10): 7 Consistency: constant, intermittent Improves With: nothing Worsens With: nothing Associated Symptoms: myalgias, abdominal pain, nausea, vomiting Treatments Prior to Arrival: none - Related Data Home Medications Medication Instructions Recorded Confirmed Atorvastatin [Lipitor] 20 mg PO HS 04/15/17 02/25/22 Levothyroxine Sodium [Synthroid] 50 mcg PO DAILY 04/15/17 02/25/22 Montelukast [Singulair] 10 mg PO HS 04/15/17 02/25/22 Levalbuterol Hfa Inhaler [Xopenex 2 puff INHALATION RT-QID PRN 07/10/19 02/25/22 Hfa Inhaler] Metoprolol Succinate (ER) [Toprol 50 mg PO DAILY 07/10/19 02/25/22 XL] Omeprazole [PriLOSEC] 40 mg PO DAILY 07/10/19 02/25/22 cycloSPORINE [Restasis] 1 drop BOTH EYES BID 07/10/19 02/25/22 Acetaminophen Tab [Tylenol] 1,000 mg PO BID 02/25/22 02/25/22 Albuterol Nebulized [Ventolin 2.5 mg INHALATION RT-QID 02/25/22 02/25/22 Nebulized] Apixaban [Eliquis] 2.5 mg PO BID 02/25/22 02/25/22 Biotin [Biotin Disolve] 10,000 mcg PO DAILY 02/25/22 02/25/22 Cyanocobalamin (Vitamin B-12) 1,000 mcg PO DAILY 02/25/22 02/25/22 [Vitamin B-12] Fluticasone/Umeclidin/Vilanter 1 puff INHALATION RT-DAILY 02/25/22 02/25/22 [Trelegy Ellipta 200-62.5-25] predniSONE 10 mg PO Q48H 02/25/22 02/25/22 Previous Rx's Medication Instructions Recorded Ipratropium-Albuterol Nebulize 3 ml INHALATION RT-QID PRN #20 each 02/28/22 [Duoneb 0.5 mg-3 mg/3 ml Soln] predniSONE 0 mg PO DAILY 16 Days #40 tab 02/28/22 Allergies Allergy/AdvReac Type Severity Reaction Status Date / Time No Known Allergies Allergy Verified 02/25/22 08:05 Review of Systems ROS Statement: Those systems with pertinent positive or pertinent negative responses have been documented in the HPI. ROS Other: All systems not noted in ROS Statement are negative. Past Medical History Past Medical History: Atrial Fibrillation, Asthma, Deep Vein Thrombosis (DVT), GERD/Reflux, Hyperlipidemia, Hypertension, Osteoarthritis (OA), Pneumonia, Pulmonary Embolus (PE), Vascular Disorder Additional Past Medical History / Comment(s): Pt has had irregular heart beat in the past and thinks it was called atrial fibrillation, R leg DVT, 2 pulmonary embolisms, bronchitis, spinal stenosis, chronic low back pain, hiatal hernia, hypothyroid, varicosities, UTIs History of Any Multi-Drug Resistant Organisms: ESBL Date of last positivie culture/infection: 04/15/17 MDRO Source:: ESBL PLEURAL FLUID Past Surgical History: Appendectomy, Back Surgery, Cholecystectomy, Heart Catheterization, Hysterectomy, Orthopedic Surgery Additional Past Surgical History / Comment(s): Laminectomy with fusion L3-L4, pain clinic back procedures, R rotator cuff repair, bronchoscopy/BAL, EGD, colonoscopies, bilateral cataract removals. Past Anesthesia/Blood Transfusion Reactions: No Reported Reaction Past Psychological History: No Psychological Hx Reported Smoking Status: Former smoker Past Alcohol Use History: None Reported Past Drug Use History: None Reported - Past Family History Mother Family Medical History: Cancer, Dementia Additional Family Medical History / Comment(s): Mother had cervical cancer. She was a smoker. Father Family Medical History: Cancer Additional Family Medical History / Comment(s): Father of lung cancer. He was a smoker. General Exam Limitations: no limitations General appearance: alert, in no apparent distress Head exam: Present: atraumatic, normocephalic, normal inspection Eye exam: Present: normal appearance, PERRL, EOMI. Absent: scleral icterus, conjunctival injection, periorbital swelling ENT exam: Present: normal exam, mucous membranes moist Neck exam: Present: normal inspection. Absent: tenderness, meningismus, lymphadenopathy Respiratory exam: Present: normal lung sounds bilaterally. Absent: respiratory distress, wheezes, rales, rhonchi, stridor Cardiovascular Exam: Present: regular rate, normal rhythm, normal heart sounds. Absent: systolic murmur, diastolic murmur, rubs, gallop, clicks GI/Abdominal exam: Present: soft, tenderness, normal bowel sounds. Absent: distended, guarding, rebound, rigid Extremities exam: Present: normal inspection, full ROM, normal capillary refill. Absent: tenderness, pedal edema, joint swelling, calf tenderness Back exam: Present: normal inspection Neurological exam: Present: alert, oriented X3, CN II-XII intact Psychiatric exam: Present: normal affect, normal mood Skin exam: Present: warm, dry, intact, normal color. Absent: rash Course Vital Signs 02/24/22 02/24/22 02/24/22 20:15 21:09 21:30 Temperature 99.2 F Pulse Rate 74 89 Pulse Rate [ Pulse Oximetery ] Respiratory 26 H 24 26 H Rate Blood Pressure 115/72 117/73 Blood Pressure [Left Arm] O2 Sat by Pulse 94 L 96 Oximetry 02/24/22 02/24/22 02/24/22 22:02 23:35 23:59 Temperature 99.8 F H Pulse Rate 90 82 78 Pulse Rate [ Pulse Oximetery ] Respiratory 22 22 20 Rate Blood Pressure 110/70 121/64 Blood Pressure [Left Arm] O2 Sat by Pulse 98 99 97 Oximetry 02/25/22 02/25/22 02/25/22 00:04 00:10 01:38 Temperature 98.9 F Pulse Rate 76 78 Pulse Rate [ 76 Pulse Oximetery ] Respiratory 18 Rate Blood Pressure Blood Pressure 116/60 [Left Arm] O2 Sat by Pulse 92 L Oximetry - Reevaluation(s) Reevaluation #1: 02/24/22 Medical record is reviewed No improvement here in the ER Patient informed of results and questions are answered Medical Decision Making - Medical Decision Making 87 female with severe bronchitis and respiratory infection fever, patient is weak and short of breath will be admitted for further supportive care - Lab Data Result diagrams: 03/02/22 06:35 03/02/22 06:35 Lab Results 02/24/22 02/24/22 02/24/22 Range/Units 21:19 21:19 21:19 WBC 7.9 (3.8-10.6) k/uL RBC 4.70 (3.80-5.40) m/uL Hgb 15.5 (11.4-16.0) gm/dL Hct 46.2 H (34.0-46.0) % MCV 98.3 (80.0-100.0) fL MCH 32.9 (25.0-35.0) pg MCHC 33.4 (31.0-37.0) g/dL RDW 13.0 (11.5-15.5) % Plt Count 255 (150-450) k/uL MPV 10.0 Immature Gran % (Auto) % Absolute Nucleated RBC (0.00-0.00) X 10*3/uL Neutrophils % 87 % Lymphocytes % 6 % Monocytes % 5 % Eosinophils % 1 % Basophils % 1 % Immature Gran # (0.00-0.04) X 10*3/uL Neutrophils # 6.9 (1.3-7.7) k/uL Lymphocytes # 0.4 L (1.0-4.8) k/uL Monocytes # 0.4 (0-1.0) k/uL Eosinophils # 0.1 (0-0.7) k/uL Basophils # 0.1 (0-0.2) k/uL NRBC/100 WBC Diff (0.0-0.0) /100 WBCS PT 10.6 (9.0-12.0) sec INR 1.0 (<1.2) APTT 22.1 (22.0-30.0) sec Sodium 141 (137-145) mmol/L Potassium 5.4 H (3.5-5.1) mmol/L Chloride 108 H (98-107) mmol/L Carbon Dioxide 24 (22-30) mmol/L Anion Gap 9 mmol/L BUN 20 H (7-17) mg/dL Creatinine 1.22 H (0.52-1.04) mg/dL Est GFR (CKD-EPI)AfAm 46 (>60 ml/min/1.73 sqM) Est GFR (CKD-EPI)NonAf 40 (>60 ml/min/1.73 sqM) BUN/Creatinine Ratio (12.00-20.00) Ratio Glucose 102 H (74-99) mg/dL Calcium 9.3 (8.4-10.2) mg/dL Phosphorus 3.9 (2.5-4.5) mg/dL Magnesium 1.9 (1.6-2.3) mg/dL Total Bilirubin 0.5 (0.2-1.3) mg/dL AST 40 H (14-36) U/L ALT 38 H (4-34) U/L Alkaline Phosphatase 67 (38-126) U/L Troponin I (0.000-0.034) ng/mL NT-Pro-B Natriuret Pep pg/mL Total Protein 7.0 (6.3-8.2) g/dL Albumin 4.4 (3.5-5.0) g/dL Globulin g/dL Albumin/Globulin Ratio Fluid Source Fluid Volume mL Fluid Appearance Fluid WBC /cmm Fluid RBC (Auto) /cmm Fld Polynuclear WBCs % % Fluid Lymphocytes % % Fluid Monocytes % % C. difficile (EIA) Intrp (Negative) Coronavirus (PCR) (Not Detectd) 02/24/22 02/24/22 02/24/22 Range/Units 21:19 21:19 22:00 WBC (3.8-10.6) k/uL RBC (3.80-5.40) m/uL Hgb (11.4-16.0) gm/dL Hct (34.0-46.0) % MCV (80.0-100.0) fL MCH (25.0-35.0) pg MCHC (31.0-37.0) g/dL RDW (11.5-15.5) % Plt Count (150-450) k/uL MPV Immature Gran % (Auto) % Absolute Nucleated RBC (0.00-0.00) X 10*3/uL Neutrophils % % Lymphocytes % % Monocytes % % Eosinophils % % Basophils % % Immature Gran # (0.00-0.04) X 10*3/uL Neutrophils # (1.3-7.7) k/uL Lymphocytes # (1.0-4.8) k/uL Monocytes # (0-1.0) k/uL Eosinophils # (0-0.7) k/uL Basophils # (0-0.2) k/uL NRBC/100 WBC Diff (0.0-0.0) /100 WBCS PT (9.0-12.0) sec INR (<1.2) APTT (22.0-30.0) sec Sodium (137-145) mmol/L Potassium (3.5-5.1) mmol/L Chloride (98-107) mmol/L Carbon Dioxide (22-30) mmol/L Anion Gap mmol/L BUN (7-17) mg/dL Creatinine (0.52-1.04) mg/dL Est GFR (CKD-EPI)AfAm (>60 ml/min/1.73 sqM) Est GFR (CKD-EPI)NonAf (>60 ml/min/1.73 sqM) BUN/Creatinine Ratio (12.00-20.00) Ratio Glucose (74-99) mg/dL Calcium (8.4-10.2) mg/dL Phosphorus (2.5-4.5) mg/dL Magnesium (1.6-2.3) mg/dL Total Bilirubin (0.2-1.3) mg/dL AST (14-36) U/L ALT (4-34) U/L Alkaline Phosphatase (38-126) U/L Troponin I <0.012 (0.000-0.034) ng/mL NT-Pro-B Natriuret Pep 585 pg/mL Total Protein (6.3-8.2) g/dL Albumin (3.5-5.0) g/dL Globulin g/dL Albumin/Globulin Ratio Fluid Source Fluid Volume mL Fluid Appearance Fluid WBC /cmm Fluid RBC (Auto) /cmm Fld Polynuclear WBCs % % Fluid Lymphocytes % % Fluid Monocytes % % C. difficile (EIA) Intrp (Negative) Coronavirus (PCR) Not Detected (Not Detectd) 02/25/22 02/27/22 02/27/22 Range/Units 10:12 09:30 10:54 WBC (3.8-10.6) k/uL RBC (3.80-5.40) m/uL Hgb (11.4-16.0) gm/dL Hct (34.0-46.0) % MCV (80.0-100.0) fL MCH (25.0-35.0) pg MCHC (31.0-37.0) g/dL RDW (11.5-15.5) % Plt Count (150-450) k/uL MPV Immature Gran % (Auto) % Absolute Nucleated RBC (0.00-0.00) X 10*3/uL Neutrophils % % Lymphocytes % % Monocytes % % Eosinophils % % Basophils % % Immature Gran # (0.00-0.04) X 10*3/uL Neutrophils # (1.3-7.7) k/uL Lymphocytes # (1.0-4.8) k/uL Monocytes # (0-1.0) k/uL Eosinophils # (0-0.7) k/uL Basophils # (0-0.2) k/uL NRBC/100 WBC Diff (0.0-0.0) /100 WBCS PT (9.0-12.0) sec INR (<1.2) APTT (22.0-30.0) sec Sodium 140 (137-145) mmol/L Potassium 4.2 (3.5-5.1) mmol/L Chloride 110 H (98-107) mmol/L Carbon Dioxide 26 (22-30) mmol/L Anion Gap 4 mmol/L BUN 21 H (7-17) mg/dL Creatinine 0.98 (0.52-1.04) mg/dL Est GFR (CKD-EPI)AfAm 60 (>60 ml/min/1.73 sqM) Est GFR (CKD-EPI)NonAf 52 (>60 ml/min/1.73 sqM) BUN/Creatinine Ratio (12.00-20.00) Ratio Glucose 90 (74-99) mg/dL Calcium 8.3 L (8.4-10.2) mg/dL Phosphorus (2.5-4.5) mg/dL Magnesium (1.6-2.3) mg/dL Total Bilirubin 0.4 (0.2-1.3) mg/dL AST 32 (14-36) U/L ALT 27 (4-34) U/L Alkaline Phosphatase 49 (38-126) U/L Troponin I (0.000-0.034) ng/mL NT-Pro-B Natriuret Pep pg/mL Total Protein 5.4 L (6.3-8.2) g/dL Albumin 3.2 L (3.5-5.0) g/dL Globulin 2.2 g/dL Albumin/Globulin Ratio 1.5 Fluid Source Bronchial Washing Fluid Volume 1 mL Fluid Appearance Turbid Fluid WBC 7000 /cmm Fluid RBC (Auto) 6000 /cmm Fld Polynuclear WBCs % 96 % Fluid Lymphocytes % 1 % Fluid Monocytes % 3 % C. difficile (EIA) Intrp Negative (Negative) Coronavirus (PCR) (Not Detectd) 03/02/22 03/02/22 Range/Units 06:35 06:35 WBC 8.99 (3.8-10.6) k/uL RBC 4.28 (3.80-5.40) m/uL Hgb 13.2 (11.4-16.0) gm/dL Hct 40.9 (34.0-46.0) % MCV 95.6 (80.0-100.0) fL MCH 30.8 (25.0-35.0) pg MCHC 32.3 (31.0-37.0) g/dL RDW 13.6 (11.5-15.5) % Plt Count 225 (150-450) k/uL MPV 11.7 Immature Gran % (Auto) 1.7 % Absolute Nucleated RBC 0 (0.00-0.00) X 10*3/uL Neutrophils % 83.0 % Lymphocytes % 8.9 % Monocytes % 6.2 % Eosinophils % 0 % Basophils % 0.2 % Immature Gran # 0.15 H (0.00-0.04) X 10*3/uL Neutrophils # 7.46 (1.3-7.7) k/uL Lymphocytes # 0.80 L (1.0-4.8) k/uL Monocytes # 0.56 (0-1.0) k/uL Eosinophils # 0 L (0-0.7) k/uL Basophils # 0.02 (0-0.2) k/uL NRBC/100 WBC Diff 0 (0.0-0.0) /100 WBCS PT (9.0-12.0) sec INR (<1.2) APTT (22.0-30.0) sec Sodium 141 (137-145) mmol/L Potassium 4.7 (3.5-5.1) mmol/L Chloride 105 (98-107) mmol/L Carbon Dioxide 23.8 (22-30) mmol/L Anion Gap 12.20 mmol/L BUN 38.6 H (7-17) mg/dL Creatinine 1.5 (0.52-1.04) mg/dL Est GFR (CKD-EPI)AfAm 35.4 L (>60 ml/min/1.73 sqM) Est GFR (CKD-EPI)NonAf 30.6 L (>60 ml/min/1.73 sqM) BUN/Creatinine Ratio 25.73 H (12.00-20.00) Ratio Glucose 131 H (74-99) mg/dL Calcium 9.3 (8.4-10.2) mg/dL Phosphorus (2.5-4.5) mg/dL Magnesium (1.6-2.3) mg/dL Total Bilirubin (0.2-1.3) mg/dL AST (14-36) U/L ALT (4-34) U/L Alkaline Phosphatase (38-126) U/L Troponin I (0.000-0.034) ng/mL NT-Pro-B Natriuret Pep pg/mL Total Protein (6.3-8.2) g/dL Albumin (3.5-5.0) g/dL Globulin g/dL Albumin/Globulin Ratio Fluid Source Fluid Volume mL Fluid Appearance Fluid WBC /cmm Fluid RBC (Auto) /cmm Fld Polynuclear WBCs % % Fluid Lymphocytes % % Fluid Monocytes % % C. difficile (EIA) Intrp (Negative) Coronavirus (PCR) (Not Detectd) - Radiology Data Radiology results: report reviewed (Chest x-ray CT chest 7 pelvis estradiol hiatal hernia or concerning for pneumonia), image reviewed Disposition Clinical Impression: Acute bronchitis, Acute upper respiratory infection, Community acquired pneumonia, Fever, ORTIZ (acute kidney injury), Large hiatal hernia Disposition: ADMITTED IP TO THIS HOSP Condition: Good Is patient prescribed a controlled substance at d/c from ED?: No Time of Disposition: 00:30
[2022-02-24 21:47] LABS: Basophils # (A) 0.1 k/uL (0-0.2); Basophils % (A) 1 %; Eosinophils # (A) 0.1 k/uL (0-0.7); Eosinophils % (A) 1 %; HCT 46.2 % (34.0-46.0); HGB 15.5 gm/dL (11.4-16.0); Lymphocytes # (A) 0.4 k/uL (1.0-4.8); Lymphocytes % (A) 6 %; MCH 32.9 pg (25.0-35.0); MCHC 33.4 g/dL (31.0-37.0); MCV 98.3 fL (80.0-100.0); Monocytes # (A) 0.4 k/uL (0-1.0); Monocytes % (A) 5 %; Neutrophils # (A) 6.9 k/uL (1.3-7.7); Neutrophils % (A) 87 %; Platelet Count 255 k/uL (150-450); WBC 7.9 k/uL (3.8-10.6)
--- NOTE | 2022-02-24 21:49 | XR ---
EXAMINATION TYPE: XR chest 1V portable DATE OF EXAM: 02/24/2022 9:30 PM COMPARISON: Chest radiographs from 02/13/2021 TECHNIQUE: XR chest 1V portable Portable AP radiograph of the chest. CLINICAL INDICATION:Female, 86 years old with history of cough; FINDINGS: Lungs/Pleura: Consolidation changes in the medial aspect of the right lower lobe which are new from p riors Pulmonary vascularity: Unremarkable. Heart/mediastinum: Cardiomediastinal silhouette is unremarkable. A large hiatal hernia present. Musculoskeletal: No acute osseous pathology. IMPRESSION: Large hiatal hernia with increased airspace opacities in the right middle lobe which could represent atelectasis given that hiatal hernia. Consider CT chest for further evaluation for hernia and associa isabel atelectasis versus pneumonia.
[2022-02-24 21:58] LABS: Partial Thromboplastin Time 22.1 sec (22.0-30.0); Prothrombin Time 10.6 sec (9.0-12.0)
[2022-02-24 22:02] LABS: Albumin 4.4 g/dL (3.5-5.0); Calcium 9.3 mg/dL (8.4-10.2); Magnesium 1.9 mg/dL (1.6-2.3); Phosphorus 3.9 mg/dL (2.5-4.5); Potassium 5.4 mmol/L (3.5-5.1); Total Bilirubin 0.5 mg/dL (0.2-1.3)
--- NOTE | 2022-02-24 22:59 | CT ---
EXAMINATION TYPE: CT ChestAbdPelvis w con DATE OF EXAM: 02/24/2022 COMPARISON: None HISTORY: cough and abd pain. hx of cholecysectomy, appendectomy, renal disease and laminectomy CT DLP: 2018.3 mGycm Automated exposure control for dose reduction was used. CONTRAST: Performed with IV Contrast, patient injected with 80 mL of Isovue 300. Images obtained from the thoracic inlet to the floor of the pelvis with the IV contrast. There is a very large hiatal hernia with intrathoracic stomach. There is some atelectasis at the lung bases adjacent to the hiatal hernia. Heart size is normal. There is coronary artery calcification. N o mediastinal adenopathy. There are no hilar masses. There are clips from cholecystectomy. Liver spleen pancreas appear intact. The bowel loops are not di lated. There is 1 cm cyst in the left lobe of the liver. There is no adrenal mass. Kidneys have normal size. No hydronephrosis. Ureters are not dilated. No re troperitoneal adenopathy. There is normal contrast opacification of the kidneys. Delayed images show normal renal excretion. Abdominal aorta is atheromatous. Bladder distends smoothly. No inguinal herni a. No free fluid in the pelvis. No evidence of a pelvic mass. Appendix not seen. No significant appendix. Small bowel is not dilated. No ascites or free air. No si gn of a bowel obstruction. The thoracic and lumbar vertebra appear intact. No compression fracture. There is multilevel vacuum d isc in the lumbar spine. The sternum is intact. The bony pelvis is intact. The hip joints are intact. Sacroiliac joints are intact. No evidence of rib fracture. There are some osteoarthritic changes in the shoulder joints. IMPRESSION: Very large hiatal hernia with some mild atelectasis at the lung bases. No acute abnormality within the abdomen and pelvis.
[2022-02-24] MEDS ORDERED: IPRATROPIUM-ALBUTEROL 3 ML NEB INHALATION STA (23:40)
[2022-02-25] MEDS ORDERED: NALOXONE 0.4 MG/ML 1 ML VIAL IV PRN (00:22)
[2022-02-25] MEDS ORDERED: ONDANSETRON 4 MG/2 ML VIAL IVP PRN (00:22)
[2022-02-25] MEDS ORDERED: MORPHINE SULFATE 4 MG/ML SYRINGE IV PRN (00:22)
--- NOTE | 2022-02-25 07:10 | P.CNPUL ---
History of Present Illness Consult date: 02/25/22 Requesting physician: Gustavo Johnson Reason for consult: dyspnea, cough, asthma, COPD Chief complaint: Shortness of breath, cough, wheezing. History of present illness: Pulmonary consult, dated 02/25/2022. 86-year-old female who does not have a family doctor. She sees my partner for her COPD/asthma. She presented to the emergency department on February 22, complaining of an upper respiratory tract infection, characterized by shortness breath, cough, wheezing, chest tightness, with minimal to no phlegm production. She's not been feeling well for about 10 days. Again, she has no primary. She does have a history of a large hiatal hernia. She's on room air. She's getting saline at 130 mL an hour. For her asthma at home, she takes Singulair, a rescue inhaler, nebulizer machine, and Trelegy. In addition to asthma, other medical history includes atrial fibrillation, deep venous thrombosis, GERD, hyperlipidemia, hypertension, urinary embolism, pneumonia, hypothyroidism, and previous heart catheterization. White count 7.9, hemoglobin 15.5, hematocrit 46.2, and platelet count normal. White urination studies are normal. Sodium 141, potassium 5.4, chlorides 108, CO2 24, BUN 20, and creatinine 1.22. AST 40. ALT 38. Testing for santos virus was negative. N-terminal proBNP was 585. Chest x-ray, and computed tomography scan of the chest abdomen and pelvis, only show a very large hiatal hernia, which the patient does know about. Review of Systems REVIEW OF SYSTEMS: CONSTITUTIONAL: [Negative.] NEUROLOGIC: [ Negative.] HEENT: [ Negative.] CARDIAC: [Negative.] PULMONARY: Shortness of breath, chest tightness, wheezing, cough. GI: [Negative.] : [Negative.] RHEUMATOLOGIC: [ Negative.] IMMUNOLOGIC: [ Negative.] ENDOCRINE: [Negative. ] DERMATOLOGIC: [Negative.] Past Medical History Past Medical History: Atrial Fibrillation, Asthma, Deep Vein Thrombosis (DVT), GERD/Reflux, Hyperlipidemia, Hypertension, Osteoarthritis (OA), Pneumonia, Pulmonary Embolus (PE), Thyroid Disorder, Vascular Disorder Additional Past Medical History / Comment(s): R leg DVT, 2 pulmonary embolisms, bronchitis, spinal stenosis, chronic low back pain, hiatal hernia, hypothyroid, varicose veins, UTIs History of Any Multi-Drug Resistant Organisms: ESBL Date of last positivie culture/infection: 04/15/17 MDRO Source:: ESBL PLEURAL FLUID Past Surgical History: Appendectomy, Back Surgery, Cholecystectomy, Heart Catheterization, Hysterectomy, Orthopedic Surgery Additional Past Surgical History / Comment(s): Laminectomy with fusion L3-L4, pain clinic back procedures, R rotator cuff repair, bronchoscopy/BAL, EGD, colonoscopies, bilateral cataract removals. Past Anesthesia/Blood Transfusion Reactions: No Reported Reaction Past Psychological History: No Psychological Hx Reported Additional Psychological History / Comment(s): Pt resides alone. She uses a cane to ambulate. She has a nebulizer. She drives. Smoking Status: Former smoker Past Alcohol Use History: None Reported Additional Past Alcohol Use History / Comment(s): Pt started smoking in 1952 and quit in 1970 Past Drug Use History: None Reported - Past Family History Mother Family Medical History: Cancer, Dementia Additional Family Medical History / Comment(s): Mother had cervical cancer. She was a smoker. Father Family Medical History: Cancer Additional Family Medical History / Comment(s): Father of lung cancer. He was a smoker. Medications and Allergies Home Medications Medication Instructions Recorded Confirmed Type Aspirin 81 mg PO HS 04/15/17 07/10/19 History Atorvastatin [Lipitor] 20 mg PO HS 04/15/17 07/10/19 History Levothyroxine Sodium [Synthroid] 50 mcg PO DAILY 04/15/17 07/10/19 History Montelukast [Singulair] 10 mg PO HS 04/15/17 07/10/19 History Ubidecarenone [Co Q-10] 200 mg PO HS 04/15/17 07/10/19 History Warfarin Sodium [Coumadin] 3 mg PO MOWEFR 04/15/17 07/10/19 History Amoxic-Pot Clav 875-125Mg 1 tab PO Q12HR 07/10/19 07/10/19 History [Augmentin 875-125] Budesonide [Pulmicort] 0.5 mg INHALATION RT-BID 07/10/19 07/10/19 History Cholecalciferol [Vitamin D3 (25 2,000 unit PO DAILY 07/10/19 07/10/19 History Mcg = 1000 Iu)] Estrogens, Conjugated Cream 1 applicator VAGINAL DIRECTED 07/10/19 07/10/19 History [Premarin Vaginal Cream] Formoterol Fumarate [Perforomist] 20 mcg INHALATION RT-BID 07/10/19 07/10/19 History Levalbuterol Hfa Inhaler [Xopenex 2 puff INHALATION RT-Q6H PRN 07/10/19 07/10/19 History Hfa Inhaler] Metoprolol Succinate (ER) [Toprol 50 mg PO DAILY 07/10/19 07/10/19 History XL] Mupirocin 2% Oint [Bactroban 2% 1 applic TOPICAL DAILY 07/10/19 07/10/19 History Oint] Omeprazole [PriLOSEC] 40 mg PO DAILY 07/10/19 07/10/19 History Warfarin [Coumadin] 2 mg PO SUTUTHSA 07/10/19 07/10/19 History cycloSPORINE [Restasis] 1 drop BOTH EYES BID 07/10/19 07/10/19 History Acetaminophen Tab [Tylenol] 650 mg PO Q6HR PRN tab 07/12/19 Rx Loperamide [Imodium] 2 mg PO QID PRN 2 Days #10 cap 07/12/19 Rx Allergies Allergy/AdvReac Type Severity Reaction Status Date / Time No Known Allergies Allergy Verified 02/24/22 20:17 Physical Exam Osteopathic Statement: *. No significant issues noted on an osteopathic structural exam other than those noted in the History and Physical/Consult. Vitals: Vital Signs Temp Pulse Pulse Resp BP BP Pulse Ox 02/25/22 06:30 98 F 56 L 16 100/56 97 02/25/22 01:38 98.9 F 76 18 116/60 92 L 02/25/22 00:10 78 02/25/22 00:04 76 02/24/22 23:59 78 20 97 02/24/22 23:35 99.8 F H 82 22 121/64 99 02/24/22 22:02 90 22 110/70 98 02/24/22 21:30 89 26 H 117/73 96 02/24/22 21:09 24 02/24/22 20:15 99.2 F 74 26 H 115/72 94 L Intake and Output 02/24/22 02/25/22 02/25/22 22:59 06:59 14:59 Other: Voiding Method Toilet # Voids 1 Weight 90.265 kg 90.265 kg No acute distress, oriented 3. No audible wheezing, use of accessory muscles, or conversational dyspnea. The patient's room air saturation is 97%. HEENT examination is grossly unremarkable. Neck supple. Full range of motion. No adenopathy thyromegaly or neck vein distention. Cardiovascular examination reveals regular rhythm rate. S1-S2 normal. No S3 or S4. No discernible murmur noted. Heart sounds are distant. Heart rate 56 bpm. Lungs reveal diffuse bilateral expiratory rhonchi and wheezes. Breath sounds equal bilaterally. Slight prolongation on forced maneuver. No crackles. Abdomen soft bowel sounds are heard. No masses or tenderness. Extremities are intact. No cyanosis clubbing or edema. Skin is without rash or lesion. Neurologic examination is brief but nonfocal. Results - Laboratory Findings CBC and BMP: 02/24/22 21:19 02/24/22 21:19 PT/INR, D-dimer PT 10.6 sec (9.0-12.0) 02/24/22 21:19 INR 1.0 (<1.2) 02/24/22 21:19 Abnormal lab findings: Abnormal Labs 02/24/22 02/24/22 21:19 21:19 Hct 46.2 H Lymphocytes # 0.4 L Potassium 5.4 H Chloride 108 H BUN 20 H Creatinine 1.22 H Glucose 102 H AST 40 H ALT 38 H - Diagnostic Findings Chest x-ray: image reviewed CT scan - chest: image reviewed Assessment and Plan Assessment: Acute exacerbation of asthma, without pneumonia. Large intrathoracic hiatal hernia causing basilar atelectasis. History of atrial fibrillation. History of DVT and pulmonary embolism. History of gastroesophageal reflux disease. History of hyperlipidemia. History of hypertension. Prior history of pneumonia. History of hypothyroidism. Remote history of tobacco use Plan: Plan dated 02/25/2022. The patient should be on Pulmicort 1 mg twice a day, mixed with formoterol, 20 g, as well as albuterol sulfate and ipratropium bromide. In addition, the patient should be placed on Solu-Medrol. We'll give the patient and oral antibiotic. She does not appear to have pneumonia rather atelectasis caused by her large intrathoracic hiatal hernia. We'll also add back Singulair 10 mg. She should do well. She does have an appointment to see my partner today, and I'll call the office and canceled that appointment for her. Time with Patient: Greater than 30
[2022-02-25] MEDS ORDERED: BUDESONIDE 0.5 MG/2 ML NEBU INHALATION SCH (08:00)
[2022-02-25] MEDS: AZITHROMYCIN 500 MG TAB PO SCH (08:26)
[2022-02-25] MEDS: IPRATROPIUM-ALBUTEROL 3 ML NEB INHALATION SCH ×4 (08:35→20:03)
[2022-02-25] MEDS: FORMOTEROL FUMARATE 20 MCG/2 ML NEBU INHALATION SCH ×2 (08:35→20:03)
[2022-02-25] MEDS: BUDESONIDE 1 MG/2 ML NEBU INHALATION SCH ×2 (08:35→20:03)
[2022-02-25] MEDS ORDERED: SODIUM CHLORIDE 0.9% 1,000 ML IV SCH (09:30)
[2022-02-25] MEDS ORDERED: ACETAMINOPHEN TAB 500 MG TAB PO SCH (10:00)
[2022-02-25 10:36] LABS: ALT 27 U/L (4-34); AST 32 U/L (14-36); African American GFR (CKD) 60 (>60 ml/min/1.73 sqM); Albumin 3.2 g/dL (3.5-5.0); Albumin/Globulin Ratio 1.5; Alkaline Phosphatase 49 U/L (38-126); Anion Gap 4 mmol/L; Blood Urea Nitrogen 21 mg/dL (7-17); Calcium 8.3 mg/dL (8.4-10.2); Carbon Dioxide 26 mmol/L (22-30); Chloride 110 mmol/L (98-107); Globulin 2.2 g/dL; Glucose 90 mg/dL (74-99); Non-African American GFR(CKD) 52 (>60 ml/min/1.73 sqM); Potassium 4.2 mmol/L (3.5-5.1); Sodium 140 mmol/L (137-145); Total Bilirubin 0.4 mg/dL (0.2-1.3); Total Protein 5.4 g/dL (6.3-8.2)
[2022-02-25] MEDS: ACETAMINOPHEN TAB 325 MG TAB PO SCH ×2 (10:44→18:00)
[2022-02-25] MEDS: methylPREDNISolone SOD SUCCI 125 MG/2 ML VIAL IV SCH ×2 (12:50→19:17)
[2022-02-25] MEDS ORDERED: BENZOCAINE/MENTHOL LOZENG 1 EACH LOZENGE MUCOUS MEM PRN (14:30)
--- NOTE | 2022-02-25 14:31 | P.HPIM ---
History of Present Illness H&P Date: 02/25/22 This is an 86 year old female who follows with Dr. Brice for history of asthma. States her PCP Dr. Rodriguez retired, does not currently have one. Medical history significant for atrial fibrillation, asthma, DVT/PE, GERD, hypertension, hyperlipidemia, hypothyroidism, hiatal hernia, spinal stenosis. Patient is a former smoker quit back in 1970, she is currently maintained on levalbuterol inhaler, trelegy ellipta, singular and oral prednisone outpatient. She presents with symptoms of difficulty in breathing ongoing over the last 2 days and is admitted for possible pneumonia and weakness. Patient is also dehydrated on admission creatinine is elevated up to 1.22 on admission, also potassium 5.4. M ild elevation in liver enzymes AST 40, ALT 38. Covid negative. CT chest abdomen and pelvis completed showing very large hiatal hernia with mild atelectasis at lung base. Pulmonary services is consulted, and patient started on IV solumedrol, bronchodilators, and is being hydrated. Low grade fever at 99.8, blood pressure 100s systolic on presentation she is on room air. REVIEW OF SYSTEMS: CONSTITUTIONAL: No fever, no malaise, no fatigue. HEENT: No recent visual problems or hearing problems. Denied any sore throat. CARDIOVASCULAR: No chest pain, orthopnea, PND, no palpitations, no syncope. PULMONARY: Reports shortness of breath and cough, no hemoptysis GASTROINTESTINAL: No diarrhea, no nausea, no vomiting, no abdominal pain. NEUROLOGICAL: Reports headache from coughing, no weakness, no numbness. HEMATOLOGICAL: Denies any bleeding or petechiae. GENITOURINARY: Denies any burning micturition, frequency, or urgency. MUSCULOSKELETAL/RHEUMATOLOGICAL: Denies any joint pain, swelling, or any muscle pain. ENDOCRINE: Denies any polyuria or polydipsia. The rest of the 14-point review of systems is negative. PHYSICAL EXAMINATION: GENERAL: The patient is alert and oriented x3, not in any acute distress. Well developed, well nourished. HEENT: Pupils are round and equally reacting to light. EOMI. No scleral icterus. No conjunctival pallor. Normocephalic, atraumatic. No pharyngeal erythema. No thyromegaly. CARDIOVASCULAR: S1 and S2 present. No murmurs, rubs, or gallops. PULMONARY: Lungs are coarse rhonchorous with expiratory wheezing ABDOMEN: Soft, nontender, nondistended, normoactive bowel sounds. No palpable organomegaly. MUSCULOSKELETAL: No joint swelling or deformity. EXTREMITIES: No cyanosis, clubbing, or pedal edema. NEUROLOGICAL: Gross neurological examination did not reveal any focal deficits. SKIN: No rashes. Assessment and Plan Assessment Shortness of breath Acute asthma exacerbation secondary to tracheobronchitis less likely pneumonia Acute kidney injury mostly prerenal secondary to poor oral intake Persistent atrial Fibrillation Hyperkalemia, resolved Intermittent asthma History DVT/PE anticoagulated with eliquis GERD Hypertension Hyperlipidemia Osteoarthritis Chronic spinal stenosis with chronic low back pain Hiatal Hernia Hypothyroid Obesity DVT prophylaxis anticoagulated with eliquis GI prophylaxis pepcid Full Code Plan Patient to continue IV solumedrol, oral antibiotics, bronchodilators Supportive care Resumed on appropriate home medications Patient is admitted in observation anticipated stay less than 2 midnights Plan for discharge home tomorrow The impression and plan of care has been dictated by Cintia Guardado Nurse Practitioner as directed. Dr. Riky MD I have performed a history and physical examination and medical decision making of this patient, discussed the same with the dictator, and agree with the dictators assessment and plan as written, documented as a scribe. Based on total visit time, I have performed more than 50% of this visit. Past Medical History Past Medical History: Atrial Fibrillation, Asthma, Deep Vein Thrombosis (DVT), GERD/Reflux, Hyperlipidemia, Hypertension, Osteoarthritis (OA), Pneumonia, Pulmonary Embolus (PE), Thyroid Disorder, Vascular Disorder Additional Past Medical History / Comment(s): R leg DVT, 2 pulmonary embolisms, bronchitis, spinal stenosis, chronic low back pain, hiatal hernia, hypothyroid, varicose veins, UTIs History of Any Multi-Drug Resistant Organisms: ESBL Date of last positivie culture/infection: 04/15/17 MDRO Source:: ESBL PLEURAL FLUID Past Surgical History: Appendectomy, Back Surgery, Cholecystectomy, Heart Catheterization, Hysterectomy, Orthopedic Surgery Additional Past Surgical History / Comment(s): Laminectomy with fusion L3-L4, pain clinic back procedures, R rotator cuff repair, bronchoscopy/BAL, EGD, colonoscopies, bilateral cataract removals. Past Anesthesia/Blood Transfusion Reactions: No Reported Reaction Past Psychological History: No Psychological Hx Reported Additional Psychological History / Comment(s): Pt resides alone. She uses a cane to ambulate. She has a nebulizer. She drives. Smoking Status: Former smoker Past Alcohol Use History: None Reported Additional Past Alcohol Use History / Comment(s): Pt started smoking in 1 and quit in 1970 Past Drug Use History: None Reported - Past Family History Mother Family Medical History: Cancer, Dementia Additional Family Medical History / Comment(s): Mother had cervical cancer. She was a smoker. Father Family Medical History: Cancer Additional Family Medical History / Comment(s): Father of lung cancer. He was a smoker. Medications and Allergies Home Medications Medication Instructions Recorded Confirmed Type Atorvastatin [Lipitor] 20 mg PO HS 04/15/17 02/25/22 History Levothyroxine Sodium [Synthroid] 50 mcg PO DAILY 04/15/17 02/25/22 History Montelukast [Singulair] 10 mg PO HS 04/15/17 02/25/22 History Levalbuterol Hfa Inhaler [Xopenex 2 puff INHALATION RT-QID PRN 07/10/19 02/25/22 History Hfa Inhaler] Metoprolol Succinate (ER) [Toprol 50 mg PO DAILY 07/10/19 02/25/22 History XL] Omeprazole [PriLOSEC] 40 mg PO DAILY 07/10/19 02/25/22 History cycloSPORINE [Restasis] 1 drop BOTH EYES BID 07/10/19 02/25/22 History Acetaminophen Tab [Tylenol Tab] 1,000 mg PO BID 02/25/22 02/25/22 History Albuterol Nebulized [Ventolin 2.5 mg INHALATION RT-QID 02/25/22 02/25/22 History Nebulized] Apixaban [Eliquis] 2.5 mg PO BID 02/25/22 02/25/22 History Biotin [Biotin Disolve] 10,000 mcg PO DAILY 02/25/22 02/25/22 History Cyanocobalamin (Vitamin B-12) 1,000 mcg PO DAILY 02/25/22 02/25/22 History [Vitamin B-12] Fluticasone/Umeclidin/Vilanter 1 puff INHALATION RT-DAILY 02/25/22 02/25/22 History [Trelegy Ellipta 200-62.5-25] predniSONE 10 mg PO Q48H 02/25/22 02/25/22 History Allergies Allergy/AdvReac Type Severity Reaction Status Date / Time No Known Allergies Allergy Verified 02/25/22 08:05 Physical Exam Vitals: Vital Signs Temp Pulse Pulse Resp BP BP Pulse Ox 02/25/22 08:55 78 02/25/22 08:48 72 02/25/22 08:37 66 97 02/25/22 06:30 98 F 56 L 16 100/56 97 02/25/22 01:38 98.9 F 76 18 116/60 92 L 02/25/22 00:10 78 02/25/22 00:04 76 02/24/22 23:59 78 20 97 02/24/22 23:35 99.8 F H 82 22 121/64 99 02/24/22 22:02 90 22 110/70 98 02/24/22 21:30 89 26 H 117/73 96 02/24/22 21:09 24 02/24/22 20:15 99.2 F 74 26 H 115/72 94 L Intake and Output 02/24/22 02/25/22 02/25/22 22:59 06:59 14:59 Other: Voiding Method Toilet # Voids 1 Weight 90.265 kg 90.265 kg Results CBC & Chem 7: 02/24/22 21:19 02/25/22 10:12 Labs: Abnormal Lab Results - Last 24 Hours (Table) 02/24/22 02/24/22 Range/Units 21:19 21:19 Hct 46.2 H (34.0-46.0) % Lymphocytes # 0.4 L (1.0-4.8) k/uL Potassium 5.4 H (3.5-5.1) mmol/L Chloride 108 H (98-107) mmol/L BUN 20 H (7-17) mg/dL Creatinine 1.22 H (0.52-1.04) mg/dL Glucose 102 H (74-99) mg/dL AST 40 H (14-36) U/L ALT 38 H (4-34) U/L Thrombosis Risk Factor Assmnt - Choose All That Apply Each Factor Represents 1 point: Abnormal pulmonary function (COPD), Obesity (BMI >25) Each Risk Factor Represents 3 Points: Age 75 years or older, History of DVT/PE Thrombosis Risk Factor Assessment Total Risk Factor Score: 8 Thrombosis Risk Factor Assessment Level: High Risk Assessment and Plan Time with Patient: Less than 30
[2022-02-25] MEDS: SODIUM CHLORIDE 0.9% 1,000 ML IV SCH ×2 (19:43→22:52)
[2022-02-25] MEDS: APIXABAN 2.5 MG TABLET PO SCH (20:23)
[2022-02-25] MEDS: MONTELUKAST 10 MG TAB PO SCH (20:23)
[2022-02-25] MEDS: ATORVASTATIN 20 MG TAB PO SCH (20:23)
[2022-02-25] MEDS: ACETAMINOPHEN TAB 325 MG TAB PO PRN (20:54)
[2022-02-25] MEDS ORDERED: MONTELUKAST 10 MG TAB PO SCH (21:00)
[2022-02-26] MEDS: methylPREDNISolone SOD SUCCI 125 MG/2 ML VIAL IV SCH ×5 (00:48→23:21)
[2022-02-26] MEDS: LEVOTHYROXINE 50 MCG TAB PO SCH (06:25)
--- NOTE | 2022-02-26 07:04 | P.PN ---
Subjective Progress Note Date: 02/26/22 Principal diagnosis: Shortness of breath. Pulmonary consult, dated 02/25/2022. 86-year-old female who does not have a family doctor. She sees my partner for her COPD/asthma. She presented to the emergency department on February 22, complaining of an upper respiratory tract infection, characterized by shortness breath, cough, wheezing, chest tightness, with minimal to no phlegm production. She's not been feeling well for about 10 days. Again, she has no primary. She does have a history of a large hiatal hernia. She's on room air. She's getting saline at 130 mL an hour. For her asthma at home, she takes Singulair, a rescue inhaler, nebulizer machine, and Trelegy. In addition to asthma, other medical history includes atrial fibrillation, deep venous thrombosis, GERD, hyperlipidemia, hypertension, urinary embolism, pneumonia, hypothyroidism, and previous heart catheterization. White count 7.9, hemoglobin 15.5, hematocrit 46.2, and platelet count normal. White urination studies are normal. Sodium 141, potassium 5.4, chlorides 108, CO2 24, BUN 20, and creatinine 1.22. AST 40. ALT 38. Testing for santos virus was negative. N-terminal proBNP was 585. Chest x-ray, and computed tomography scan of the chest abdomen and pelvis, only show a very large hiatal hernia, which the patient does know about. Progress note dated 02/26/2022. 86-year-old female seen yesterday in consultation. She sees one of my partners for her COPD/asthma. He doing a bit better today. She remains on 2 L. No IV fluids. She still very short of breath and wheezing. Her cough is a bit better. No new labs today as yet. Objective - Vital Signs Vital signs: Vital Signs Temp 98.0 F 02/26/22 02:36 Pulse 57 L 02/26/22 02:36 Resp 18 02/26/22 02:36 BP 113/66 02/26/22 02:36 Pulse Ox 95 02/26/22 02:36 FiO2 Intake & Output 02/25/22 02/26/22 02/26/22 18:59 06:59 18:59 Other: Voiding Method Toilet Toilet # Voids 1 2 - Exam No acute distress, oriented 3. No audible wheezing, use of accessory muscles, or conversational dyspnea. The patient's room air saturation is 95 %. HEENT examination is grossly unremarkable. Neck supple. Full range of motion. No adenopathy thyromegaly or neck vein dist ention. Cardiovascular examination reveals regular rhythm rate. S1-S2 normal. No S3 or S4. No discernible murmur noted. Heart sounds are distant. Heart rate 57 bpm. Lungs reveal diffuse bilateral expiratory rhonchi and wheezes. Breath sounds equal bilaterally. Slight prolongation on forced maneuver. No crackles. Abdomen soft bowel sounds are heard. No masses or tenderness. Extremities are intact. No cyanosis clubbing or edema. Skin is without rash or lesion. Neurologic examination is brief but nonfocal. - Labs CBC & Chem 7: 02/24/22 21:19 02/25/22 10:12 Labs: Abnormal Lab Results - Last 24 Hours (Table) 02/25/22 Range/Units 10:12 Chloride 110 H (98-107) mmol/L BUN 21 H (7-17) mg/dL Calcium 8.3 L (8.4-10.2) mg/dL Total Protein 5.4 L (6.3-8.2) g/dL Albumin 3.2 L (3.5-5.0) g/dL Assessment and Plan Assessment: Acute exacerbation of asthma, without pneumonia. Large intrathoracic hiatal hernia causing basilar atelectasis. History of atrial fibrillation. History of DVT and pulmonary embolism. History of gastroesophageal reflux disease. History of hyperlipidemia. History of hypertension. Prior history of pneumonia. History of hypothyroidism. Remote history of tobacco use Plan: Plan dated 02/25/2022. The patient should be on Pulmicort 1 mg twice a day, mixed with formoterol, 20 g, as well as albuterol sulfate and ipratropium bromide. In addition, the patient should be placed on Solu-Medrol. We'll give the patient and oral antibiotic. She does not appear to have pneumonia rather atelectasis caused by her large intrathoracic hiatal hernia. We'll also add back Singulair 10 mg. She should do well. She does have an appointment to see my partner today, and I'll call the office and canceled that appointment for her. Plan dated 02/26/2022. The patient appears to be doing a bit better. She was placed on appropriate medications. She's having a bit of diarrhea. Chest x-ray did not show pneumonia. She does have a large intrathoracic hiatal hernia. Medications are appropriate. Labs, x-rays, medications are all reviewed. The patient is not quite ready for discharge. Possibly tomorrow. Time with Patient: Less than 30
[2022-02-26] MEDS: FORMOTEROL FUMARATE 20 MCG/2 ML NEBU INHALATION SCH ×2 (08:11→19:44)
[2022-02-26] MEDS: IPRATROPIUM-ALBUTEROL 3 ML NEB INHALATION SCH ×4 (08:11→19:44)
[2022-02-26] MEDS: BUDESONIDE 1 MG/2 ML NEBU INHALATION SCH ×2 (08:11→19:44)
[2022-02-26] MEDS: APIXABAN 2.5 MG TABLET PO SCH ×2 (10:09→20:29)
[2022-02-26] MEDS: AZITHROMYCIN 500 MG TAB PO SCH (10:09)
[2022-02-26] MEDS: PANTOPRAZOLE 40 MG TABLET PO SCH (10:09)
[2022-02-26] MEDS: CYANOCOBALAMIN 500 MCG TAB PO SCH (10:09)
[2022-02-26] MEDS ORDERED: LOPERAMIDE 2 MG CAP PO PRN (14:25)
--- NOTE | 2022-02-26 17:24 | P.PN ---
Subjective Progress Note Date: 02/26/22 This is an 86 year old female who follows with Dr. Brice for history of asthma. States her PCP Dr. Rodriguez retired, does not currently have one. Medical history significant for atrial fibrillation, asthma, DVT/PE, GERD, hypertension, hyperlipidemia, hypothyroidism, hiatal hernia, spinal stenosis. Patient is a former smoker quit back in 1970, she is currently maintained on levalbuterol inhaler, trelegy ellipta, singular and oral prednisone outpatient. She presents with symptoms of difficulty in breathing ongoing over the last 2 days and is admitted for possible pneumonia and weakness. Patient is also dehydrated on admission creatinine is elevated up to 1.22 on admission, also potassium 5.4. Mild elevation in liver enzymes AST 40, ALT 38. Covid negative. CT chest abdomen and pelvis completed showing very large hiatal hernia with mild atelectasis at lung base. Pulmonary services is consulted, and patient started on IV solumedrol, bronchodilators, and is being hydrated. Low grade fever at 99.8, blood pressure 100s systolic on presentation she is on room air. 02/26/2022 Patient is evaluated today sitting up in the chair. Continues with expiratory wheezing mostly upper airway. Pulmonary following and recommending to monitor overnight. Continues on IV steroids and bronchodilators. 97% on room air, afebrile. Continues on PO azithromycin tomorrow will complete the course of antibiotics. Patient has had a few episodes of diarrhea. Patient doesn't feel ready to discharge today. Review of Systems Constitutional: Denied any fatigue denied any fever. Cardio vascular: denied any chest pain, palpitations Gastrointestinal: denied any nausea, vomiting, diarrhea Pulmonary: Reports shortness of breath, mild non productive cough. Neurologic denied any new focal deficits All inpatient medications were reviewed and appropriate changes in these medications as dictated in the interval history and assessment and plan. PHYSICAL EXAMINATION: GENERAL: The patient is alert and oriented x3, not in any acute distress. Well developed, well nourished. HEENT: Pupils are round and equally reacting to light. EOMI. No scleral icterus. No conjunctival pallor. Normocephalic, atraumatic. No pharyngeal erythema. No thyromegaly. CARDIOVASCULAR: S1 and S2 present. No murmurs, rubs, or gallops. PULMONARY: Lungs are coarse rhonchorous with expiratory wheezing ABDOMEN: Soft, nontender, nondistended, normoactive bowel sounds. No palpable organomegaly. MUSCULOSKELETAL: No joint swelling or deformity. EXTREMITIES: No cyanosis, clubbing, or pedal edema. NEUROLOGICAL: Gross neurological examination did not reveal any focal deficits. SKIN: No rashes. Assessment and Plan Assessment Shortness of breath Acute asthma exacerbation secondary to tracheobronchitis less likely pneumonia Acute kidney injury mostly prerenal secondary to poor oral intake improved Persistent atrial Fibrillation Hyperkalemia, resolved Intermittent asthma History DVT/PE anticoagulated with eliquis GERD Hypertension Hyperlipidemia Osteoarthritis Chronic spinal stenosis with chronic low back pain Hiatal Hernia Hypothyroid Obesity DVT prophylaxis anticoagulated with eliquis GI prophylaxis pepcid Full Code Plan Patient to continue IV solumedrol, oral antibiotics, bronchodilators Supportive care Resumed on appropriate home medications Pulmonary recommending to continue monitoring patient overnight and continue on IV steroids and bronchodilators. Patient continues with significant wheezing mostly upper airway. Continues to report feeling short of breath while ambula ting. Recommend to check oxygen saturation with activity. The impression and plan of care has been dictated by Cintia Guardado, Nurse Practitioner as directed. Dr. Riky MD I have performed a history and physical examination and medical decision making of this patient, discussed the same with the dictator, and agree with the dictators assessment and plan as written, documented as a scribe. Based on total visit time, I have performed more than 50% of this visit. Objective - Vital Signs Vital signs: Vital Signs Temp 98.2 F 02/26/22 13:22 Pulse 91 02/26/22 13:22 Resp 20 02/26/22 13:22 BP 132/70 02/26/22 13:22 Pulse Ox 97 02/26/22 13:22 FiO2 Intake & Output 02/25/22 02/26/22 02/26/22 18:59 06:59 18:59 Intake Total 240 Balance 240 Intake: Intake, IV Titration 0 Amount Sodium Chloride 0.9% 1, 0 000 ml @ 75 mls/hr IV . [id number] Rx#:[id number] Oral 240 Other: Voiding Method Toilet Toilet # Voids 1 2 - Labs CBC & Chem 7: 02/24/22 21:19 02/25/22 10:12 Assessment and Plan Time with Patient: Less than 30
[2022-02-26] MEDS: ATORVASTATIN 20 MG TAB PO SCH (20:26)
[2022-02-26] MEDS: MONTELUKAST 10 MG TAB PO SCH (20:26)
[2022-02-26] MEDS: ACETAMINOPHEN TAB 325 MG TAB PO PRN (20:26)
[2022-02-27] MEDS: methylPREDNISolone SOD SUCCI 125 MG/2 ML VIAL IV SCH ×3 (06:22→17:21)
[2022-02-27] MEDS: LEVOTHYROXINE 50 MCG TAB PO SCH (06:22)
--- NOTE | 2022-02-27 07:30 | P.PN ---
Subjective Progress Note Date: 02/27/22 Principal diagnosis: Shortness of breath. Pulmonary consult, dated 02/25/2022. 86-year-old female who does not have a family doctor. She sees my partner for her COPD/asthma. She presented to the emergency department on February 22, complaining of an upper respiratory tract infection, characterized by shortness breath, cough, wheezing, chest tightness, with minimal to no phlegm production. She's not been feeling well for about 10 days. Again, she has no primary. She does have a history of a large hiatal hernia. She's on room air. She's getting saline at 130 mL an hour. For her asthma at home, she takes Singulair, a rescue inhaler, nebulizer machine, and Trelegy. In addition to asthma, other medical history includes atrial fibrillation, deep venous thrombosis, GERD, hyperlipidemia, hypertension, urinary embolism, pneumonia, hypothyroidism, and previous heart catheterization. White count 7.9, hemoglobin 15.5, hematocrit 46.2, and platelet count normal. White urination studies are normal. Sodium 141, potassium 5.4, chlorides 108, CO2 24, BUN 20, and creatinine 1.22. AST 40. ALT 38. Testing for santos virus was negative. N-terminal proBNP was 585. Chest x-ray, and computed tomography scan of the chest abdomen and pelvis, only show a very large hiatal hernia, which the patient does know about. Progress note dated 02/26/2022. 86-year-old female seen yesterday in consultation. She sees one of my partners for her COPD/asthma. He doing a bit better today. She remains on 2 L. No IV fluids. She still very short of breath and wheezing. Her cough is a bit better. No new labs today as yet. Progress note dated 02/27/2022. 86-year-old female admitted with a diagnosis of COPD/asthma exacerbation. She is a bit better today than she was yesterday. In my opinion, not quite ready to go home. Her cough is a bit better. She still very short of breath with any activity. Sees my partner in the office for her COPD/asthma. She's on approp riate medications: Bronchodilators, and steroids. No new labs today. Objective - Vital Signs Vital signs: Vital Signs Temp 97.7 F 02/27/22 02:41 Pulse 70 02/27/22 02:41 Resp 18 02/27/22 02:41 BP 119/74 02/27/22 02:41 Pulse Ox 96 02/27/22 02:41 FiO2 Intake & Output 02/26/22 02/27/22 02/27/22 18:59 06:59 18:59 Intake Total 480 Output Total 100 Balance 380 Intake: Intake, IV Titration 0 Amount Sodium Chloride 0.9% 1, 0 000 ml @ 75 mls/hr IV . [id number] [facility] Rx#:[id number] Oral 480 Output: Urine 100 Other: Voiding Method Toilet # Voids 2 - Exam No acute distress, oriented 3. No audible wheezing, use of accessory muscles, or conversational dyspnea. The patient's room air saturation is 96 %. HEENT examination is grossly unremarkable. Neck supple. Full range of motion. No adenopathy thyromegaly or neck vein distention. Cardiovascular examination reveals regular rhythm rate. S1-S2 normal. No S3 or S4. No discernible murmur noted. Heart sounds are distant. Heart rate 70 bpm. Lungs reveal diffuse bilateral expiratory rhonchi and wheezes. Breath sounds equal bilaterally. Slight prolongation on forced maneuver. No crackles. Abdomen soft bowel sounds are heard. No masses or tenderness. Extremities are intact. No cyanosis clubbing or edema. Skin is without rash or lesion. Neurologic examination is brief but nonfocal. - Labs CBC & Chem 7: 02/24/22 21:19 02/25/22 10:12 Assessment and Plan Assessment: Acute exacerbation of asthma, without pneumonia. Large intrathoracic hiatal hernia causing basilar atelectasis. History of atrial fibrillation. History of DVT and pulmonary embolism. History of gastroesophageal reflux disease. History of hyperlipidemia. History of hypertension. Prior history of pneumonia. History of hypothyroidism. Remote history of tobacco use Plan: Plan dated 02/25/2022. The patient should be on Pulmicort 1 mg twice a day, mixed with formoterol, 20 g, as well as albuterol sulfate and ipratropium bromide. In addition, the patient should be placed on Solu-Medrol. We'll give the patient and oral antibiotic. She does not appear to have pneumonia rather atelectasis caused by her large intrathoracic hiatal hernia. We'll also add back Singulair 10 mg. She should do well. She does have an appointment to see my partner today, and I'll call the office and canceled that appointment for her. Plan dated 02/26/2022. The patient appears to be doing a bit better. She was placed on appropriate medications. She's having a bit of diarrhea. Chest x-ray did not show pneumonia. She does have a large intrathoracic hiatal hernia. Medications are appropriate. Labs, x-rays, medications are all reviewed. The patient is not quite ready for discharge. Possibly tomorrow. Plan dated 02/27/2022. The patient continues to improve albeit slowly. She still having significant shortness of breath on exertion, and cough. She's on appropriate medications. She does have a large intrathoracic hiatal hernia which should be repaired eventually. The hiatal hernia, could be contributing to her chronic lung issues. Labs, x-rays, and medications are reviewed. She continues on appropriate medications. Possible discharge Wednesday. Time with Patient: Less than 30
[2022-02-27] MEDS: FORMOTEROL FUMARATE 20 MCG/2 ML NEBU INHALATION SCH ×2 (07:41→19:27)
[2022-02-27] MEDS: IPRATROPIUM-ALBUTEROL 3 ML NEB INHALATION SCH ×4 (07:41→19:27)
[2022-02-27] MEDS: BUDESONIDE 1 MG/2 ML NEBU INHALATION SCH ×2 (07:41→19:27)
[2022-02-27] MEDS: AZITHROMYCIN 500 MG TAB PO SCH (07:50)
[2022-02-27] MEDS: CYANOCOBALAMIN 500 MCG TAB PO SCH (07:50)
[2022-02-27] MEDS: PANTOPRAZOLE 40 MG TABLET PO SCH (07:50)
[2022-02-27] MEDS: APIXABAN 2.5 MG TABLET PO SCH ×2 (07:50→20:53)
[2022-02-27] MEDS: ACETAMINOPHEN TAB 325 MG TAB PO PRN (09:40)
[2022-02-27] MEDS: MONTELUKAST 10 MG TAB PO SCH (20:52)
[2022-02-27] MEDS: ATORVASTATIN 20 MG TAB PO SCH (20:52)
[2022-02-28] MEDS: methylPREDNISolone SOD SUCCI 125 MG/2 ML VIAL IV SCH ×5 (00:01→23:52)
[2022-02-28] MEDS: LEVOTHYROXINE 50 MCG TAB PO SCH (05:45)
--- NOTE | 2022-02-28 07:20 | P.PN ---
Subjective Progress Note Date: 02/27/22 This is an 86 year old female who follows with Dr. Brice for history of asthma. States her PCP Dr. Rodriguez retired, does not currently have one. Medical history significant for atrial fibrillation, asthma, DVT/PE, GERD, hypertension, hyperlipidemia, hypothyroidism, hiatal hernia, spinal stenosis. Patient is a former smoker quit back in 1970, she is currently maintained on levalbuterol inhaler, trelegy ellipta, singular and oral prednisone outpatient. She presents with symptoms of difficulty in breathing ongoing over the last 2 days and is admitted for possible pneumonia and weakness. Patient is also dehydrated on admission creatinine is elevated up to 1.22 on admission, also potassium 5.4. Mild elevation in liver enzymes AST 40, ALT 38. Covid negative. CT chest abdomen and pelvis completed showing very large hiatal hernia with mild atelectasis at lung base. Pulmonary services is consulted, and patient started on IV solumedrol, bronchodilators, and is being hydrated. Low grade fever at 99.8, blood pressure 100s systolic on presentation she is on room air. 02/26/2022 Patient is evaluated today sitting up in the chair. Continues with expiratory wheezing mostly upper airway. Pulmonary following and recommending to monitor overnight. Continues on IV steroids and bronchodilators. 97% on room air, afebrile. Continues on PO azithromycin tomorrow will complete the course of antibiotics. Patient has had a few episodes of diarrhea. Patient doesn't feel ready to discharge today. 02/27/2022 Patient is sitting up in chair. Continues with expiratory wheeze and continues with shortness of breath while ambulating. Diarrhea has improved. Most likely from antibiotics. Continues on bronchodilators and steroids. C.Dif negative. 95% on room air. Pulmonary following. Possible discharge over the weekend. Review of Systems Constitutional: Denied any fatigue denied any fever. Cardio vascular: denied any chest pain, palpitations Gastrointestinal: denied any nausea, vomiting, diarrhea Pulmonary: Reports shortness of breath, mild non productive cough. Neurologic denied any new focal deficits All inpatient medications were reviewed and appropriate changes in these medications as dictated in the interval history and assessment and plan. PHYSICAL EXAMINATION: GENERAL: The patient is alert and oriented x3, not in any acute distress. Well developed, well nourished. HEENT: Pupils are round and equally reacting to light. EOMI. No scleral icterus. No conjunctival pallor. Normocephalic, atraumatic. No pharyngeal erythema. No thyromegaly. CARDIOVASCULAR: S1 and S2 present. No murmurs, rubs, or gallops. PULMONARY: Lungs are coarse rhonchorous with expiratory wheezing ABDOMEN: Soft, nontender, nondistended, normoactive bowel sounds. No palpable organomegaly. MUSCULOSKELETAL: No joint swelling or deformity. EXTREMITIES: No cyanosis, clubbing, or pedal edema. NEUROLOGICAL: Gross neurological examination did not reveal any focal deficits. SKIN: No rashes. Assessment and Plan Assessment Shortness of breath Acute asthma exacerbation secondary to tracheobronchitis less likely pneumonia Acute kidney injury mostly prerenal secondary to poor oral intake improved Persistent atrial Fibrillation Hyperkalemia, resolved Intermittent asthma History DVT/PE anticoagulated with eliquis GERD Hypertension Hyperlipidemia Osteoarthritis Chronic spinal stenosis with chronic low back pain Hiatal Hernia Hypothyroid Obesity DVT prophylaxis anticoagulated with eliquis GI prophylaxis pepcid Full Code Plan Patient to continue IV solumedrol bronchodilators Supportive care Check pulse ox while ambulating The impression and plan of care has been dictated by Cintia Guardado, Nurse Practitioner as directed. Dr. Riky MD I have performed a history and physical examination and medical decision making of this patient, discussed the same with the dictator, and agree with the dictators assessment and plan as written, documented as a scribe. Based on total visit time, I have performed more than 50% of this visit. Objective - Vital Signs Vital signs: Vital Signs Temp 98.0 F 02/27/22 08:30 Pulse 100 02/27/22 11:42 Resp 18 02/27/22 08:30 BP 146/75 02/27/22 08:30 Pulse Ox 97 02/27/22 08:30 FiO2 Intake & Output 02/26/22 02/27/22 02/27/22 18:59 06:59 18:59 Intake Total 480 240 Output Total 100 Balance 380 240 Intake: Intake, IV Titration 0 Amount Sodium Chloride 0.9% 1, 0 000 ml @ 75 mls/hr IV . [id number] [id number] Rx#:[id number] Oral 480 240 Output: Urine 100 Other: Voiding Method Toilet Toilet # Voids 2 - Labs CBC & Chem 7: 02/24/22 21:19 02/25/22 10:12 Assessment and Plan Time with Patient: Less than 30
[2022-02-28] MEDS: IPRATROPIUM-ALBUTEROL 3 ML NEB INHALATION SCH ×4 (07:56→20:21)
[2022-02-28] MEDS: BUDESONIDE 1 MG/2 ML NEBU INHALATION SCH ×2 (07:56→20:21)
[2022-02-28] MEDS: FORMOTEROL FUMARATE 20 MCG/2 ML NEBU INHALATION SCH ×2 (07:56→20:21)
[2022-02-28] MEDS: CYANOCOBALAMIN 500 MCG TAB PO SCH (08:32)
[2022-02-28] MEDS: APIXABAN 2.5 MG TABLET PO SCH ×2 (08:32→21:06)
[2022-02-28] MEDS: PANTOPRAZOLE 40 MG TABLET PO SCH (08:32)
[2022-02-28] MEDS: ACETAMINOPHEN TAB 325 MG TAB PO PRN (08:43)
--- NOTE | 2022-02-28 13:14 | P.PN ---
Subjective Progress Note Date: 02/28/22 86-year-old female who does not have a family doctor. She sees my partner for her COPD/asthma. She presented to the emergency department on February 22, complaining of an upper respiratory tract infection, characterized by shortness breath, cough, wheezing, chest tightness, with minimal to no phlegm production. She's not been feeling well for about 10 days. Again, she has no primary. She does have a history of a large hiatal hernia. She's on room air. She's getting saline at 130 mL an hour. For her asthma at home, she takes Singulair, a rescue inhaler, nebulizer machine, and Trelegy. In addition to asthma, other medical history includes atrial fibrillation, deep venous thrombosis, GERD, h yperlipidemia, hypertension, urinary embolism, pneumonia, hypothyroidism, and previous heart catheterization. White count 7.9, hemoglobin 15.5, hematocrit 46.2, and platelet count normal. White urination studies are normal. Sodium 141, potassium 5.4, chlorides 108, CO2 24, BUN 20, and creatinine 1.22. AST 40. ALT 38. Testing for santos virus was negative. N-terminal proBNP was 585. Chest x-ray, and computed tomography scan of the chest abdomen and pelvis, only show a very large hiatal hernia, which the patient does know about. Progress note dated 02/26/2022. 86-year-old female seen yesterday in consultation. She sees one of my partners for her COPD/asthma. He doing a bit better today. She remains on 2 L. No IV fluids. She still very short of breath and wheezing. Her cough is a bit better. No new labs today as yet. Progress note dated 02/27/2022. 86-year-old female admitted with a diagnosis of COPD/asthma exacerbation. She is a bit better today than she was yesterday. In my opinion, not quite ready to go home. Her cough is a bit better. She still very short of breath with any activity. Sees my partner in the office for her COPD/asthma. She's on appropriate medications: Bronchodilators, and steroids. No new labs today. Patient is seen today 02/28/2022 in follow-up on the regular medical floor. She is currently sitting up in a chair at the bedside. Awake and alert in no acute distress. She is still somewhat bronchospastic and wheezy. She has a loose cough. She is maintaining good O2 saturations in the 90s on room air. Afebrile. She is continued on DuoNeb inhalations, Pulmicort and Perforomist inhalations, IV Solu-Medrol, Singulair. Eliquis for anticoagulation Objective - Vital Signs Vital signs: Vital Signs Temp 98 F 02/28/22 07:00 Pulse 92 02/28/22 11:52 Resp 16 02/28/22 07:00 BP 150/67 02/28/22 07:00 Pulse Ox 95 02/28/22 07:00 FiO2 Intake & Output 02/27/22 02/28/22 02/28/22 18:59 06:59 18:59 Intake Total 476 250 240 Balance 476 250 240 Intake: Oral 476 250 240 Other: Voiding Method Toilet Toilet # Voids 3 1 - Exam GENERAL EXAM: Alert, pleasant 87-year-old female, on room air, comfortable in no apparent distress. HEAD: Normocephalic. EYES: Normal reaction of pupils, equal size. NOSE: Clear with pink turbinates. THROAT: No erythema or exudates. NECK: No masses, no JVD. CHEST: No chest wall deformity. LUNGS: Equal air entry with bilateral end expiratory wheeze, diminished CVS: S1 and S2 normal with no audible murmur, regular rhythm. ABDOMEN: No hepatosplenomegaly, normal bowel sounds, no guarding or rigidity. SPINE: No scoliosis or deformity SKIN: No rashes CENTRAL NERVOUS SYSTEM: No focal deficits, tone is normal in all 4 extremities. EXTREMITIES: There is no peripheral edema. No clubbing, no cyanosis. Peripheral pulses are intact. - Labs CBC & Chem 7: 02/24/22 21:19 02/25/22 10:12 Assessment and Plan Assessment: Acute exacerbation of asthma, without pneumonia. Large intrathoracic hiatal hernia causing basilar atelectasis. History of atrial fibrillation. History of DVT and pulmonary embolism. History of gastroesophageal reflux disease. History of hyperlipidemia. History of hypertension. Prior history of pneumonia. History of hypothyroidism. Remote history of tobacco use Plan: The patient was seen and evaluated Improved but not ready for discharge Continue the current treatment plan Increase her activity as tolerated We will continue to follow I have personally seen and examined the patient, performed the documentation and the assessment and plan as written. Number of minutes spent on the visit: 10.
--- NOTE | 2022-02-28 15:48 | P.PN ---
Subjective Progress Note Date: 02/28/22 This is an 86 year old female who follows with Dr. Brice for history of asthma. States her PCP Dr. Rodriguez retired, does not currently have one. Medical history significant for atrial fibrillation, asthma, DVT/PE, GERD, hypertension, hyperlipidemia, hypothyroidism, hiatal hernia, spinal stenosis. Patient is a former smoker quit back in 1970, she is currently maintained on levalbuterol inhaler, trelegy ellipta, singular and oral prednisone outpatient. She presents with symptoms of difficulty in breathing ongoing over the last 2 days and is admitted for possible pneumonia and weakness. Patient is also dehydrated on admission creatinine is elevated up to 1.22 on admission, also potassium 5.4. Mild elevation in liver enzymes AST 40, ALT 38. Covid negative. CT chest abdomen and pelvis completed showing very large hiatal hernia with mild atelectasis at lung base. Pulmonary services is consulted, and patient started on IV solumedrol, bronchodilators, and is being hydrated. Low grade fever at 99.8, blood pressure 100s systolic on presentation she is on room air. 02/26/2022 Patient is evaluated today sitting up in the chair. Continues with expiratory wheezing mostly upper airway. Pulmonary following and recommending to monitor overnight. Continues on IV steroids and bronchodilators. 97% on room air, afebrile. Continues on PO azithromycin tomorrow will complete the course of antibiotics. Patient has had a few episodes of diarrhea. Patient doesn't feel ready to discharge today. 02/27/2022 Patient is sitting up in chair. Continues with expiratory wheeze and continues with shortness of breath while ambulating. Diarrhea has improved. Most likely from antibiotics. Continues on bronchodilators and steroids. C.Dif negative. 95% on room air. Pulmonary following. Possible discharge over the weekend. 02/28/2022 Patient is sitting up in chair today. She states she feels worse breathing garcia than yesterday. Continues with significant end expiratory wheeze mostly upper airway and continues with bronchospastic cough. She is short of breath when ambulating. Continues to maintain oxygen saturations on room air, currently 92%. She is continued on bronchodilators, IV steroids. Pulmonary following. Review of Systems Constitutional: Denied any fatigue denied any fever. Cardio vascular: denied any chest pain, palpitations Gastrointestinal: denied any nausea, vomiting, diarrhea Pulmonary: Reports shortness of breath, mild non productive cough. Neurologic denied any new focal deficits All inpatient medications were reviewed and appropriate changes in these medications as dictated in the interval history and assessment and plan. PHYSICAL EXAMINATION: GENERAL: The patient is alert and oriented x3, not in any acute distress. Well developed, well nourished. HEENT: Pupils are round and equally reacting to light. EOMI. No scleral icterus. No conjunctival pallor. Normocephalic, atraumatic. No pharyngeal erythema. No thyromegaly. CARDIOVASCULAR: S1 and S2 present. No murmurs, rubs, or gallops. PULMONARY: Lungs are coarse rhonchorous with expiratory wheezing ABDOMEN: Soft, nontender, nondistended, normoactive bowel sounds. No palpable organomegaly. MUSCULOSKELETAL: No joint swelling or deformity. EXTREMITIES: No cyanosis, clubbing, or pedal edema. NEUROLOGICAL: Gross neurological examination did not reveal any focal deficits. SKIN: No rashes. Assessment and Plan Assessment Shortness of breath Acute asthma exacerbation secondary to tracheobronchitis less likely pneumonia Acute kidney injury mostly prerenal secondary to poor oral intake improved Persistent atrial Fibrillation Hyperkalemia, resolved Intermittent asthma History DVT/PE anticoagulated with eliquis GERD Hypertension Hyperlipidemia Osteoarthritis Chronic spinal stenosis with chronic low back pain Hiatal Hernia Hypothyroid Obesity DVT prophylaxis anticoagulated with eliquis GI prophylaxis pepcid Full Code Plan Patient to continue IV solumedrol bronchodilators Supportive care Check pulse ox while ambulating Pulmonary following The impression and plan of care has been dictated by Cintia Guardado, Nurse Practitioner as directed. Dr. Riky MD I have performed a history and physical examination and medical decision making of this patient, discussed the same with the dictator, and agree with the dictators assessment and plan as written, documented as a scribe. Based on total visit time, I have performed more than 50% of this visit. Objective - Vital Signs Vital signs: Vital Signs Temp 98 F 02/28/22 07:00 Pulse 92 02/28/22 11:52 Resp 16 02/28/22 07:00 BP 150/67 02/28/22 07:00 Pulse Ox 95 02/28/22 07:00 FiO2 Intake & Output 02/27/22 02/28/22 02/28/22 18:59 06:59 18:59 Intake Total 476 250 240 Balance 476 250 240 Intake: Oral 476 250 240 Other: Voiding Method Toilet Toilet # Voids 3 1 - Labs CBC & Chem 7: 02/24/22 21:19 02/25/22 10:12 Assessment and Plan Time with Patient: Less than 30
[2022-02-28] MEDS: ATORVASTATIN 20 MG TAB PO SCH (21:06)
[2022-02-28] MEDS: MONTELUKAST 10 MG TAB PO SCH (21:06)
[2022-03-01] MEDS: IPRATROPIUM-ALBUTEROL 3 ML NEB INHALATION PRN (01:15)
[2022-03-01] MEDS: methylPREDNISolone SOD SUCCI 125 MG/2 ML VIAL IV SCH ×3 (06:25→17:01)
[2022-03-01] MEDS: LEVOTHYROXINE 50 MCG TAB PO SCH (06:26)
[2022-03-01] MEDS: IPRATROPIUM-ALBUTEROL 3 ML NEB INHALATION SCH ×4 (07:28→19:22)
[2022-03-01] MEDS: FORMOTEROL FUMARATE 20 MCG/2 ML NEBU INHALATION SCH ×2 (07:28→19:21)
[2022-03-01] MEDS: BUDESONIDE 1 MG/2 ML NEBU INHALATION SCH ×2 (07:28→19:21)
--- NOTE | 2022-03-01 07:35 | XR ---
EXAMINATION TYPE: XR chest 2V DATE OF EXAM: 03/01/2022 COMPARISON: 02/24/2022 HISTORY: 87 year-old female shortness of breath TECHNIQUE: AP and lateral views FINDINGS: Heart mildly enlarged. Large retrocardiac hiatal hernia. Mild interstitial prominence. Patchy left gr eater than right lower lung densities. No sizable pleural effusion. IMPRESSION: Redemonstrated large hiatal hernia with mild patchy bibasilar densities, probably atelectasis rather than infiltrates. Clinically correlate.
[2022-03-01] MEDS: PANTOPRAZOLE 40 MG TABLET PO SCH (08:17)
[2022-03-01] MEDS: CYANOCOBALAMIN 500 MCG TAB PO SCH (08:17)
[2022-03-01] MEDS: APIXABAN 2.5 MG TABLET PO SCH ×2 (08:18→21:10)
--- NOTE | 2022-03-01 11:52 | P.PN ---
Subjective Progress Note Date: 03/01/22 This is an 86 year old female who follows with Dr. Brice for history of asthma. States her PCP Dr. Rodriguez retired, does not currently have one. Medical history significant for atrial fibrillation, asthma, DVT/PE, GERD, hypertension, hyperlipidemia, hypothyroidism, hiatal hernia, spinal stenosis. Patient is a former smoker quit back in 1970, she is currently maintained on levalbuterol inhaler, trelegy ellipta, singular and oral prednisone outpatient. She presents with symptoms of difficulty in breathing ongoing over the last 2 days and is admitted for possible pneumonia and weakness. Patient is also dehydrated on admission creatinine is elevated up to 1.22 on admission, also potassium 5.4. Mild elevation in liver enzymes AST 40, ALT 38. Covid negative. CT chest abdomen and pelvis completed showing very large hiatal hernia with mild atelectasis at lung base. Pulmonary services is consulted, and patient started on IV solumedrol, bronchodilators, and is being hydrated. Low grade fever at 99.8, blood pressure 100s systolic on presentation she is on room air. 02/26/2022 Patient is evaluated today sitting up in the chair. Continues with expiratory wheezing mostly upper airway. Pulmonary following and recommending to monitor overnight. Continues on IV steroids and bronchodilators. 97% on room air, afebrile. Continues on PO azithromycin tomorrow will complete the course of antibiotics. Patient has had a few episodes of diarrhea. Patient doesn't feel ready to discharge today. 02/27/2022 Patient is sitting up in chair. Continues with expiratory wheeze and continues with shortness of breath while ambulating. Diarrhea has improved. Most likely from antibiotics. Continues on bronchodilators and steroids. C.Dif negative. 95% on room air. Pulmonary following. Possible discharge over the weekend. 02/28/2022 Patient is sitting up in chair today. She states she feels worse breathing garcia than yesterday. Continues with significant end expiratory wheeze mostly upper airway and continues with bronchospastic cough. She is short of breath when ambulating. Continues to maintain oxygen saturations on room air, currently 92%. She is continued on bronchodilators, IV steroids. Pulmonary following. 03/01/2022 Patient sitting up in chair. Expiratory wheezing noted throughout lung harrison. Had increasing respiratory distress overnight and chest xray was completed showing large hiatal hernia with patchy bibasilar densities, most likely atelectasis vs. infiltrates. Has been placed on 2L nasal cannula 96% oxygen saturation. Continues on bronchodilators, pulmicort, formoterol, IV solumedrol 60 mg every 6 hours. Pulmonary following. Review of Systems Constitutional: Denied any fatigue denied any fever. Cardio vascular: denied any chest pain, palpitations Gastrointestinal: denied any nausea, vomiting, diarrhea Pulmonary: Reports shortness of breath, Congested cough Neurologic denied any new focal deficits All inpatient medications were reviewed and appropriate changes in these me dications as dictated in the interval history and assessment and plan. PHYSICAL EXAMINATION: GENERAL: The patient is alert and oriented x3, currently on 2L nasal cannula, short of breath HEENT: Pupils are round and equally reacting to light. EOMI. No scleral icterus. No conjunctival pallor. Normocephalic, atraumatic. No pharyngeal erythema. No thyromegaly. CARDIOVASCULAR: S1 and S2 present. No murmurs, rubs, or gallops. PULMONARY: Lungs are coarse rhonchorous with expiratory wheezing, bronchospastic cough ABDOMEN: Soft, nontender, nondistended, normoactive bowel sounds. No palpable organomegaly. MUSCULOSKELETAL: No joint swelling or deformity. EXTREMITIES: No cyanosis, clubbing, or pedal edema. NEUROLOGICAL: Gross neurological examination did not reveal any focal deficits. SKIN: No rashes. Assessment and Plan Assessment Shortness of breath Acute asthma exacerbation secondary to tracheobronchitis less likely pneumonia Acute kidney injury mostly prerenal secondary to poor oral intake improved Persistent atrial Fibrillation Hyperkalemia, resolved Intermittent asthma History DVT/PE anticoagulated with eliquis GERD Hypertension Hyperlipidemia Osteoarthritis Chronic spinal stenosis with chronic low back pain Hiatal Hernia Hypothyroid Obesity DVT prophylaxis anticoagulated with eliquis GI prophylaxis pepcid Full Code Plan Patient to continue IV solumedrol bronchodilators Patient has been placed on nasal cannula Supportive care Pulmonary following The impression and plan of care has been dictated by Nurse Marcie Practitioner as directed. Dr. Riky MD I have performed a history and physical examination and medical decision making of this patient, discussed the same with the dictator, and agree with the dictators assessment and plan as written, documented as a scribe. Based on total visit time, I have performed more than 50% of this visit. Objective - Vital Signs Vital signs: Vital Signs Temp 97.9 F 11/20/22 07:00 Pulse 87 03/01/22 07:52 Resp 16 03/01/22 07:00 BP 160/87 03/01/22 07:00 Pulse Ox 96 03/01/22 07:29 FiO2 Intake & Output 02/28/22 03/01/22 03/01/22 18:59 06:59 18:59 Intake Total 358 500 240 Balance 358 500 240 Intake: Oral 358 500 240 Other: Voiding Method Toilet # Voids 2 2 - Labs CBC & Chem 7: 02/24/22 21:19 02/25/22 10:12 Assessment and Plan Time with Patient: Less than 30
[2022-03-01] MEDS: ACETAMINOPHEN TAB 325 MG TAB PO PRN ×2 (13:44→21:09)
--- NOTE | 2022-03-01 18:01 | P.PN ---
Subjective Progress Note Date: 03/01/22 Principal diagnosis: Shortness of breath. Pulmonary consult, dated 02/25/2022. 86-year-old female who does not have a family doctor. She sees my partner for her COPD/asthma. She presented to the emergency department on February 22, complaining of an upper respiratory tract infection, characterized by shortness breath, cough, wheezing, chest tightness, with minimal to no phlegm production. She's not been feeling well for about 10 days. Again, she has no primary. She does have a history of a large hiatal hernia. She's on room air. She's getting saline at 130 mL an hour. For her asthma at home, she takes Singulair, a rescue inhaler, nebulizer machine, and Trelegy. In addition to asthma, other medical history includes atrial fibrillation, deep venous thrombosis, GERD, hyperlipidemia, hypertension, urinary embolism, pneumonia, hypothyroidism, and previous heart catheterization. White count 7.9, hemoglobin 15.5, hematocrit 46.2, and platelet count normal. White urination studies are normal. Sodium 141, potassium 5.4, chlorides 108, CO2 24, BUN 20, and creatinine 1.22. AST 40. ALT 38. Testing for santos virus was negative. N-terminal proBNP was 585. Chest x-ray, and computed tomography scan of the chest abdomen and pelvis, only show a very large hiatal hernia, which the patient does know about. Progress note dated 02/26/2022. 86-year-old female seen yesterday in consultation. She sees one of my partners for her COPD/asthma. He doing a bit better today. She remains on 2 L. No IV fluids. She still very short of breath and wheezing. Her cough is a bit better. No new labs today as yet. Progress note dated 02/27/2022. 86-year-old female admitted with a diagnosis of COPD/asthma exacerbation. She is a bit better today than she was yesterday. In my opinion, not quite ready to go home. Her cough is a bit better. She still very short of breath with any activity. Sees my partner in the office for her COPD/asthma. She's on approp riate medications: Bronchodilators, and steroids. No new labs today. Progress note dated 03/01/2022. 86-year-old female with a diagnosis of COPD/asthma exacerbation. The patient had a spell this morning when she cannot breathe. The patient had a stat chest x-ray, that was essentially unchanged. Currently, she is on 2 L. Previously, she was on room air. She's not receiving any IV fluids. I told her that I would keep her nothing by mouth after midnight, just in case my partner wants to do a bronchoscopy on her tomorrow. She has had one in the past and it seemed to help. She is on all appropriate medications including bronchodilators, and steroids. No new labs today. Objective - Vital Signs Vital signs: Vital Signs Temp 97.9 F 03/01/22 12:56 Pulse 88 03/01/22 15:32 Resp 16 03/01/22 12:56 BP 179/90 03/01/22 15:05 Pulse Ox 99 03/01/22 15:05 FiO2 Intake & Output 02/28/22 03/01/22 03/01/22 18:59 06:59 18:59 Intake Total 358 500 480 Balance 358 500 480 Intake: Oral 358 500 480 Other: Voiding Method Toilet # Voids 2 2 2 - Exam A bit more short of breath this morning, but oriented 3. No audible wheezing, use of accessory muscles, or conversational dyspnea. The patient's saturation on 2 L is 99%. HEENT examination is grossly unremarkable. Neck supple. Full range of motion. No adenopathy thyromegaly or neck vein distention. Cardiovascular examination reveals regular rhythm rate. S1-S2 normal. No S3 or S4. No discernible murmur noted. Heart sounds are distant. Heart rate 88 bpm. Lungs reveal diffuse bilateral expiratory rhonchi and wheezes. Breath sounds equal bilaterally. Slight prolongation on forced maneuver. No crackles. Abdomen soft bowel sounds are heard. No masses or tenderness. Extremities are intact. No cyanosis clubbing or edema. Skin is without rash or lesion. Neurologic examination is brief but nonfocal. - Labs CBC & Chem 7: 02/24/22 21:19 02/25/22 10:12 Assessment and Plan Assessment: Acute exacerbation of asthma, without pneumonia. Large intrathoracic hiatal hernia causing basilar atelectasis. History of atrial fibrillation. History of DVT and pulmonary embolism. History of gastroesophageal reflux disease. History of hyperlipidemia. History of hypertension. Prior history of pneumonia. History of hypothyroidism. Remote history of tobacco use Plan: Plan dated 02/25/2022. The patient should be on Pulmicort 1 mg twice a day, mixed with formoterol, 20 g, as well as albuterol sulfate and ipratropium bromide. In addition, the patient should be placed on Solu-Medrol. We'll give the patient and oral antibiotic. She does not appear to have pneumonia rather atelectasis caused by her large intrathoracic hiatal hernia. We'll also add back Singulair 10 mg. She should do well. She does have an appointment to see my partner today, and I'll call the office and canceled that appointment for her. Plan dated 02/26/2022. The patient appears to be doing a bit better. She was placed on appropriate medications. She's having a bit of diarrhea. Chest x-ray did not show pneumonia. She does have a large intrathoracic hiatal hernia. Medications are appropriate. Labs, x-rays, medications are all reviewed. The patient is not quite ready for discharge. Possibly tomorrow. Plan dated 02/27/2022. The patient continues to improve albeit slowly. She still having significant shortness of breath on exertion, and cough. She's on appropriate medications. She does have a large intrathoracic hiatal hernia which should be repaired eventually. The hiatal hernia, could be contributing to her chronic lung issues. Labs, x-rays, and medications are reviewed. She continues on appropriate medications. Possible discharge Wednesday. Plan dated 03/01/2022. The patient's on appropriate medications. I will make her NPO after midnight, just in case my partner would like to do a bronchoscopy on her tomorrow. Labs, x-rays, and medications are reviewed. The chest x-ray this morning was unchange d. Additional recommendations and suggestions are forthcoming. Prognosis is guarded. Time with Patient: Less than 30
[2022-03-01] MEDS: NYSTATIN 100,000 UNIT/ML SUSP 500,000 UNIT/5 ML CUP PO SCH ×2 (21:09→21:12)
[2022-03-01] MEDS: ATORVASTATIN 20 MG TAB PO SCH (21:10)
[2022-03-01] MEDS: MONTELUKAST 10 MG TAB PO SCH (21:10)
[2022-03-02] MEDS: methylPREDNISolone SOD SUCCI 125 MG/2 ML VIAL IV SCH ×4 (00:28→17:32)
[2022-03-02] MEDS: LEVOTHYROXINE 50 MCG TAB PO SCH (05:53)
[2022-03-02] MEDS: BUDESONIDE 1 MG/2 ML NEBU INHALATION SCH ×2 (07:35→20:41)
[2022-03-02] MEDS: FORMOTEROL FUMARATE 20 MCG/2 ML NEBU INHALATION SCH ×2 (07:35→20:41)
[2022-03-02] MEDS: IPRATROPIUM-ALBUTEROL 3 ML NEB INHALATION SCH ×4 (07:35→20:41)
[2022-03-02] MEDS: PANTOPRAZOLE 40 MG TABLET PO SCH (09:50)
[2022-03-02] MEDS: NYSTATIN 100,000 UNIT/ML SUSP 500,000 UNIT/5 ML CUP PO SCH ×4 (09:50→20:37)
[2022-03-02] MEDS: CYANOCOBALAMIN 500 MCG TAB PO SCH (09:50)
[2022-03-02] MEDS ORDERED: LACTATED RINGERS 1,000 ML IV ONE (10:37)
[2022-03-02 10:40] LABS: Basophils # (A) 0.02 X 10*3/uL (0.00-0.10); Basophils % (A) 0.2 %; Eosinophils # (A) 0 X 10*3/uL (0.04-0.35); Eosinophils % (A) 0 %; HCT 40.9 % (37.2-46.3); HGB 13.2 g/dL (12.0-15.0); Immature Grans, Automated 1.7 %; Lymphocytes % (A) 8.9 %; MCH 30.8 pg (27.0-32.0); MCHC 32.3 g/dL (32.0-37.0); MCV 95.6 fL (80.0-97.0); Mean Platelet Volume 11.7 fL (9.5-12.2); Monocytes # (A) 0.56 X 10*3/uL (0.20-1.00); Monocytes % (A) 6.2 %; NRBC Per 100 WBC 0 /100 WBCS (0.0-0.0); Neutrophils # (A) 7.46 X 10*3/uL (1.80-7.70); Platelet Count 225 X 10*3/uL (140-440); RBC 4.28 X 10*6/uL (4.10-5.20); RDW 13.6 % (11.5-14.5); WBC 8.99 X 10*3/uL (4.50-10.00)
[2022-03-02] MEDS ORDERED: LIDOCAINE 2% INJ 20 MG/ML (2 ML VIAL) ONE (10:43)
[2022-03-02] MEDS ORDERED: fentaNYL (PF) 50 MCG/ML 2 ML AMP ONE (10:43)
[2022-03-02] MEDS ORDERED: PROPOFOL 10 MG/ML 20 ML VIAL IV ONE (10:43)
--- NOTE | 2022-03-02 10:47 | P.PN ---
Subjective Progress Note Date: 03/02/22 On today's evaluation of 03/02/2022, the patient is still having increased cough, congestion, chest tightness and wheeze. She still has excessive chest congestion with multiple sputum production. She has history of chronic bronchial asthma. She was infected a with E. coli back in 2018 requiring IV an tibiotics. Since then, she has had on a few exacerbations. For the most part, her condition has remained stable. She has history of atrial fibrillation, previous history of DVT, hypertension, hypothyroidism, hyperlipidemia, and acid reflux. She also has a large hiatal hernia which is known from previous evaluations. Since admission, the patient has shown limited improvement and for that reason we decided to proceed with a bronchoscopy and therapeutic airway suctioning and a bronchial lavage. She is on bronchodilators. She is on steroids. She is currently utilizing no antibiotics. She is on anticoagulation with Eliquis. Her Covid 19 testing was negative. Objective - Vital Signs Vital signs: Vital Signs Temp 97.5 F L 03/02/22 07:00 Pulse 94 03/02/22 08:02 Resp 18 03/02/22 07:00 BP 134/58 03/02/22 07:00 Pulse Ox 94 L 03/02/22 07:35 FiO2 Intake & Output 03/01/22 03/02/22 03/02/22 18:59 06:59 18:59 Intake Total 598 Balance 598 Intake: Oral 598 Other: Voiding Method Toilet # Voids 2 1 - Exam A bit more short of breath this morning, but oriented 3. No audible wheezing, use of accessory muscles, or conversational dyspnea. The patient's saturation on 2 L is 99%. HEENT examination is grossly unremarkable. Neck supple. Full range of motion. No adenopathy thyromegaly or neck vein distention. Cardiovascular examination reveals regular rhythm rate. S1-S2 normal. No S3 or S4. No discernible murmur noted. Heart sounds are distant. Heart rate 88 bpm. Lungs reveal diffuse bilateral expiratory rhonchi and wheezes. Breath sounds equal bilaterally. Slight prolongation on forced maneuver. No crackles. Abdomen soft bowel sounds are heard. No masses or tenderness. Extremities are intact. No cyanosis clubbing or edema. Skin is without rash or lesion. Neurologic examination is brief but nonfocal. - Labs CBC & Chem 7: 03/02/22 06:35 02/25/22 10:12 Labs: Abnormal Lab Results - Last 24 Hours (Table) 03/02/22 Range/Units 06:35 Immature Gran # 0.15 H (0.00-0.04) X 10*3/uL Lymphocytes # 0.80 L (0.90-5.00) X 10*3/uL Eosinophils # 0 L (0.04-0.35) X 10*3/uL Assessment and Plan Plan: Acute exacerbation of asthma, without pneumonia. 6 history of any acute pulmonary infiltrates. Nevertheless, the patient has extensive congestion, bronchospasm. Covid 19 testing is negative. Rule out influenza/RSV tracheobronchitis. Rule out bacterial tracheobronchitis. Acute hypoxic respiratory failure, currently on 2 L of O2 nasal cannula Large intrathoracic hiatal hernia causing basilar atelectasis. History of atrial fibrillation. History of DVT and pulmonary embolism. History of gastroesophageal reflux disease. History of hyperlipidemia. History of hypertension. Prior history of pneumonia. History of hypothyroidism. Remote history of tobacco use Plan Will check pro calcitonin level Continue bronchodilators and steroids We'll start antibiotics if needed We'll proceed with bronchoscopy and bronchial lavage Further recommendations are to follow
[2022-03-02] MEDS ORDERED: LIDOCAINE 2% (PF) 20 MG/ML 10 ML AMP INHALATION ONE ×2 (10:49)
[2022-03-02 10:54] LABS: African American GFR (CKD) 35.4 (60.0-200.0); Anion Gap 12.2 mmol/L (10.00-18.00); BUN/Creat Ratio 25.73 Ratio (12.00-20.00); Blood Urea Nitrogen 38.6 mg/dL (9.0-27.0); Calcium 9.3 mg/dL (8.7-10.3); Carbon Dioxide 23.8 mmol/L (20.0-27.5); Non-African American GFR(CKD) 30.6 (60.0-200.0); Potassium 4.7 mmol/L (3.5-5.5)
--- NOTE | 2022-03-02 11:01 | P.PCN ---
Date of Procedure: 03/02/22 Preoperative Diagnosis: Shortness of breath Postoperative Diagnosis: Tracheobronchomalacia Diffuse tracheal bronchitis Bilateral mucus plugging Procedure(s) Performed: Bronchoscopy and bronchial alveolar lavage Anesthesia: MAC Surgeon: Moody Brice Sand Cleaning Machine Operator #1: Wen Carlson Estimated Blood Loss (ml): 0 Pathology: other Condition: stable Disposition: floor Operative Findings: This procedure was done under conscious sedation. The patient was given pr opofol and fentanyl for sedation. The sedative drugs was being admitted by HANDLE BAR ASSEMBLER. The patient was placed on a full facemask and a flexible bronchoscopy was completed. The flexible bronchoscope was easily introduced through the right nostril and was advanced to the upper airway. As the flexor was being advanced, the posterior pharynx, larynx, epiglottis, arytenoids, and the vocal cords were all inspected and the upper airway structures were all within normal limits without any significant abnormalities. The patient had normal functionality and structure. A total of 2 mL of 1% lidocaine was applied to the vocal cord and following that the bronchoscope was advanced into the lower trachea. Immediately, the patient was noted to have diffuse tracheobronchomalacia. There was copious amount of mucous plugs quite limited the trachea and the bilateral mainstem bronchi and the mucous plugs were more extensive on the left. Therapeutic airway suctioning was done and the secretions were suctioned out without any major difficulties. Those were purulent secretions. Underlying bronchial mucosa was quite inflamed and erythematous and there was some areas of mucosal sloughing within the trachea and the left mainstem bronchus. Therapeutic airway suctioning was done. The bronchoscope was moved to the left lower lobe endobronchial lower lavage was done with a total of 60 mL of fluid was infused and 20 mL was suctioned back. The patient tolerated the procedure well. Airway inspection was completed. Visualize airways included the trachea, bilateral mainstem bronchi, right upper lobe bronchus, bronchus intermedius, right middle lobe bronchus and right lower lobe bronchus and the left upper lobe bronchus and left lower lobe bronchus and the various segments on the right and left. Therapeutic airway suctioning was done. All of this effusion was removed. Bronchoscope was taken out and the patient was transferred back to recovery in stable condition. No significant desaturation was encountered during the procedure. In fact, the patient off sedation improved after removing the mucous plugs.
[2022-03-02] MEDS: APIXABAN 2.5 MG TABLET PO SCH ×2 (11:41→20:37)
--- NOTE | 2022-03-02 13:25 | P.PN ---
Subjective Progress Note Date: 03/02/22 This is an 86 year old female who follows with Dr. Brice for history of asthma. States her PCP Dr. Rodriguez retired, does not currently have one. Medical history significant for atrial fibrillation, asthma, DVT/PE, GERD, hypertension, hyperlipidemia, hypothyroidism, hiatal hernia, spinal stenosis. Patient is a former smoker quit back in 1970, she is currently maintained on levalbuterol inhaler, trelegy ellipta, singular and oral prednisone outpatient. She presents with symptoms of difficulty in breathing ongoing over the last 2 days and is admitted for possible pneumonia and weakness. Patient is also dehydrated on admission creatinine is elevated up to 1.22 on admission, also potassium 5.4. Mild elevation in liver enzymes AST 40, ALT 38. Covid negative. CT chest abdomen and pelvis completed showing very large hiatal hernia with mild atelectasis at lung base. Pulmonary services is consulted, and patient started on IV solumedrol, bronchodilators, and is being hydrated. Low grade fever at 99.8, blood pressure 100s systolic on presentation she is on room air. 02/26/2022 Patient is evaluated today sitting up in the chair. Continues with expiratory wheezing mostly upper airway. Pulmonary following and recommending to monitor overnight. Continues on IV steroids and bronchodilators. 97% on room air, afebrile. Continues on PO azithromycin tomorrow will complete the course of antibiotics. Patient has had a few episodes of diarrhea. Patient doesn't feel ready to discharge today. 02/27/2022 Patient is sitting up in chair. Continues with expiratory wheeze and continues with shortness of breath while ambulating. Diarrhea has improved. Most likely from antibiotics. Continues on bronchodilators and steroids. C.Dif negative. 95% on room air. Pulmonary following. Possible discharge over the weekend. 02/28/2022 Patient is sitting up in chair today. She states she feels worse breathing garcia than yesterday. Continues with significant end expiratory wheeze mostly upper airway and continues with bronchospastic cough. She is short of breath when ambulating. Continues to maintain oxygen saturations on room air, currently 92%. She is continued on bronchodilators, IV steroids. Pulmonary following. 03/01/2022 Patient sitting up in chair. Expiratory wheezing noted throughout lung harrison. Had increasing respiratory distress overnight and chest xray was completed showing large hiatal hernia with patchy bibasilar densities, most likely atelectasis vs. infiltrates. Has been placed on 2L nasal cannula 96% oxygen saturation. Continues on bronchodilators, pulmicort, formoterol, IV solumedrol 60 mg every 6 hours. Pulmonary following. 03/02/22. Patient seen and examined. Still having shortness of breath. Still having cough. No complaints of lethargic and weakness. Vital signs stable REVIEW OF SYSTEMS: CONSTITUTIONAL: No fever, no malaise, no fatigue. HEENT: No recent visual problems or hearing problems. Denied any sore throat. CARDIOVASCULAR: No chest pain, no syncope. PULMONARY: no hemoptysis. GASTROINTESTINAL: No diarrhea, no nausea, no vomiting, no abdominal pain. GENITOURINARY: Denies any burning micturition, frequency, or urgency. PHYSICAL EXAMINATION: GENERAL: The patient is alert and oriented x3, not in any acute distress. Well developed, well nourished. HEENT: Pupils are round and equally reacting to light. EOMI. No scleral icterus. No conjunctival pallor. Normocephalic, atraumatic. No pharyngeal erythema. No thyromegaly. CARDIOVASCULAR: S1 and S2 present. No murmurs, rubs, or gallops. PULMONARY: Chest is clear to auscultation, no wheezing or crackles. ABDOMEN: Soft, nontender, nondistended, normoactive bowel sounds. No palpable organomegaly. MUSCULOSKELETAL: No joint swelling or deformity. EXTREMITIES: No cyanosis, clubbing, or pedal edema. NEUROLOGICAL: Gross neurological examination did not reveal any focal deficits. SKIN: No rashes. Assessment Shortness of breath Acute asthma exacerbation secondary to tracheobronchitis less likely pneumonia Acute kidney injury mostly prerenal secondary to poor oral intake improved Persistent atrial Fibrillation Hyperkalemia, resolved Intermittent asthma History DVT/PE anticoagulated with eliquis GERD Hypertension Hyperlipidemia Osteoarthritis Chronic spinal stenosis with chronic low back pain Hiatal Hernia Hypothyroid Obesity DVT prophylaxis anticoagulated with eliquis GI prophylaxis pepcid Full Code Plan Continue oxygen supplementation. Aggressive bronchopulmonary hygiene. Pulmonology plan to do bronchoscopy with bronchial lavage today continue IV solumedrol bronchodilators Pulmonary following Objective - Vital Signs Vital signs: Vital Signs Temp 97.5 F L 03/02/22 11:25 Pulse 75 03/02/22 12:10 Resp 20 03/02/22 11:25 BP 138/74 03/02/22 12:10 Pulse Ox 96 03/02/22 11:25 FiO2 Intake & Output 03/01/22 03/02/22 03/02/22 18:59 06:59 18:59 Intake Total 598 100 Balance 598 100 Intake: IV 100 Oral 598 Other: Voiding Method Toilet # Voids 2 1 - Labs CBC & Chem 7: 03/02/22 06:35 03/02/22 06:35 Labs: Abnormal Lab Results - Last 24 Hours (Table) 03/02/22 03/02/22 Range/Units 06:35 06:35 Immature Gran # 0.15 H (0.00-0.04) X 10*3/uL Lymphocytes # 0.80 L (0.90-5.00) X 10*3/uL Eosinophils # 0 L (0.04-0.35) X 10*3/uL BUN 38.6 H (9.0-27.0) mg/dL Est GFR (CKD-EPI)AfAm 35.4 L (60.0-200.0) Est GFR (CKD-EPI)NonAf 30.6 L (60.0-200.0) BUN/Creatinine Ratio 25.73 H (12.00-20.00) Ratio Glucose 131 H (70-110) mg/dL
[2022-03-02] MEDS: ATORVASTATIN 20 MG TAB PO SCH (20:37)
[2022-03-02] MEDS: MONTELUKAST 10 MG TAB PO SCH (20:37)
[2022-03-02] MEDS: ACETAMINOPHEN TAB 325 MG TAB PO PRN (21:24)
[2022-03-02 22:23] LABS: Appearance,BF Turbid
[2022-03-03] MEDS: methylPREDNISolone SOD SUCCI 125 MG/2 ML VIAL IV SCH ×2 (00:09→06:22)
[2022-03-03] MEDS: IPRATROPIUM-ALBUTEROL 3 ML NEB INHALATION PRN ×2 (00:22→03:05)
[2022-03-03] MEDS: LEVOTHYROXINE 50 MCG TAB PO SCH (06:22)
[2022-03-03] MEDS: PANTOPRAZOLE 40 MG TABLET PO SCH (08:32)
[2022-03-03] MEDS: APIXABAN 2.5 MG TABLET PO SCH (08:32)
[2022-03-03] MEDS: CYANOCOBALAMIN 500 MCG TAB PO SCH (08:32)
[2022-03-03] MEDS: NYSTATIN 100,000 UNIT/ML SUSP 500,000 UNIT/5 ML CUP PO SCH (08:32)
[2022-03-03] MEDS: FORMOTEROL FUMARATE 20 MCG/2 ML NEBU INHALATION SCH (09:01)
[2022-03-03] MEDS: IPRATROPIUM-ALBUTEROL 3 ML NEB INHALATION SCH ×2 (09:02→12:54)
[2022-03-03] MEDS: BUDESONIDE 1 MG/2 ML NEBU INHALATION SCH (09:10)
[2022-03-03 09:40] LABS: Basophils # (A) 0.03 X 10*3/uL (0.00-0.10); Basophils % (A) 0.3 %; Eosinophils # (A) 0 X 10*3/uL (0.04-0.35); Eosinophils % (A) 0 %; HGB 13.3 g/dL (12.0-15.0); Immature Grans, Automated 1.4 %; Lymphocytes # (A) 0.62 X 10*3/uL (0.90-5.00); Lymphocytes % (A) 5.4 %; MCH 31.7 pg (27.0-32.0); MCHC 32.4 g/dL (32.0-37.0); MCV 97.6 fL (80.0-97.0); Mean Platelet Volume 11.8 fL (9.5-12.2); Monocytes # (A) 0.42 X 10*3/uL (0.20-1.00); Monocytes % (A) 3.6 %; NRBC Per 100 WBC 0 /100 WBCS (0.0-0.0); Neutrophils # (A) 10.28 X 10*3/uL (1.80-7.70); Neutrophils % (A) 89.3 %; Platelet Count 219 X 10*3/uL (140-440); RDW 13.5 % (11.5-14.5); WBC 11.51 X 10*3/uL (4.50-10.00)
[2022-03-03 10:55] LABS: African American GFR (CKD) 42.1 (60.0-200.0); Albumin 3.8 g/dL (3.8-4.9); Anion Gap 12.9 mmol/L (10.00-18.00); BUN/Creat Ratio 28.08 Ratio (12.00-20.00); Blood Urea Nitrogen 36.5 mg/dL (9.0-27.0); Calcium 9.2 mg/dL (8.7-10.3); Carbon Dioxide 23.1 mmol/L (20.0-27.5); Globulin 1.9 g/dL (1.6-3.3); Non-African American GFR(CKD) 36.3 (60.0-200.0); Potassium 4.5 mmol/L (3.5-5.5); Total Bilirubin 0.4 mg/dL (0.30-1.20); Total Protein 5.7 g/dL (6.2-8.2)
[2022-03-03 12:46] VITALS: BP 149/78; RESP 16; TEMP 97.5
[2022-03-03 13:03] VITALS: PULSE 98
[2022-03-03 13:19] VITALS: BMI 37.5
--- NOTE | 2022-03-03 14:18 | P.DS ---
Providers Date of admission: 03/02/22 10:01 Expected date of discharge: 03/03/22 Attending physician: Gustavo Johnson Primary care physician: Stated None Hospital Course: Discharge diagnoses; Shortness of breath Acute asthma exacerbation secondary to tracheobronchitis less likely pneumonia Acute kidney injury mostly prerenal secondary to poor oral intake improved Persistent atrial Fibrillation Hyperkalemia, resolved Intermittent asthma History DVT/PE anticoagulated with eliquis GERD Hypertension Hyperlipidemia Osteoarthritis Chronic spinal stenosis with chronic low back pain Hiatal Hernia Hypothyroid Obesity Hospital course; This is an 86 year old female who follows with Dr. Brice for history of asthma. States her PCP Dr. Rodriguez retired, does not currently have one. Medical history significant for atrial fibrillation, asthma, DVT/PE, GERD, hypertension, hyperlipidemia, hypothyroidism, hiatal hernia, spinal stenosis. Patient is a former smoker quit back in 1970, she is currently maintained on levalbuterol inhaler, trelegy ellipta, singular and oral prednisone outpatient. She presents with symptoms of difficulty in breathing ongoing over the last 2 days and is admitted for possible pneumonia and weakness. Patient is also dehydrated on admission creatinine is elevated up to 1.22 on admission, also potassium 5.4. Mild elevation in liver enzymes AST 40, ALT 38. Covid negative. CT chest abdomen and pelvis completed showing very large hiatal hernia with mild atelectasis at lung base. Pulmonary services is consulted, and patient started on IV solumedrol, bronchodilators, and is being hydrated. Low grade fever at 99.8, blood pressure 100s systolic on presentation she is on room air. 02/26/2022 Patient is evaluated today sitting up in the chair. Continues with expiratory wheezing mostly upper airway. Pulmonary following and recommending to monitor overnight. Continues on IV steroids and bronchodilators. 97% on room air, afebrile. Continues on PO azithromycin tomorrow will complete the course of antibiotics. Patient has had a few episodes of diarrhea. Patient doesn't feel ready to discharge today. 02/27/2022 Patient is sitting up in chair. Continues with expiratory wheeze and continues with shortness of breath while ambulating. Diarrhea has improved. Most likely from antibiotics. Continues on bronchodilators and steroids. C.Dif negative. 95% on room air. Pulmonary following. Possible discharge over the weekend. 02/28/2022 Patient is sitting up in chair today. She states she feels worse breathing garcia than yesterday. Continues with significant end expiratory wheeze mostly upper airway and continues with bronchospastic cough. She is short of breath when ambulating. Continues to maintain oxygen saturations on room air, currently 92%. She is continued on bronchodilators, IV steroids. Pulmonary following. 03/01/2022 Patient sitting up in chair. Expiratory wheezing noted throughout lung harrison. Had increasing respiratory distress overnight and chest xray was completed showing large hiatal hernia with patchy bibasilar densities, most likely atelectasis vs. infiltrates. Has been placed on 2L nasal cannula 96% oxygen saturation. Continues on bronchodilators, pulmicort, formoterol, IV solumedrol 60 mg every 6 hours. Pulmonary following. 03/02/22. Patient seen and examined. Still having shortness of breath. Still having cough. No complaints of lethargic and weakness. Vital signs stable 03/03/22. Patient seen and examined. Status post bronchoscopy with bronchial lavage, showed tracheobronchomalacia and bilateral mucous plugging. This morning patient respiratory status has improved, currently not requiring supplemental oxygen. Patient had walking resting pulse ox done prior to discharge. Pulmonology evaluated the patient, cleared the patient for discharge PHYSICAL EXAMINATION: GENERAL: The patient is alert and oriented x3, not in any acute distress. Well developed, well nourished. HEENT: Pupils are round and equally reacting to light. EOMI. No scleral icterus. No conjunctival pallor. Normocephalic, atraumatic. No pharyngeal erythema. No thyromegaly. CARDIOVASCULAR: S1 and S2 present. No murmurs, rubs, or gallops. PULMONARY: Chest is clear to auscultation, no wheezing or crackles. ABDOMEN: Soft, nontender, nondistended, normoactive bowel sounds. No palpable organomegaly. MUSCULOSKELETAL: No joint swelling or deformity. EXTREMITIES: No cyanosis, clubbing, or pedal edema. NEUROLOGICAL: Gross neurological examination did not reveal any focal deficits. SKIN: No rashes. Patient Condition at Discharge: Good Plan - Discharge Summary New Discharge Prescriptions: New predniSONE 0 mg PO DAILY 16 Days #40 tab Ipratropium-Albuterol Nebulize [Duoneb 0.5 mg-3 mg/3 ml Soln] 3 ml INHALATION RT-QID PRN #20 each PRN Reason: Shortness Of Breath Or Wheezing Continue Montelukast [Singulair] 10 mg PO HS Levothyroxine Sodium [Synthroid] 50 mcg PO DAILY Atorvastatin [Lipitor] 20 mg PO HS Levalbuterol Hfa Inhaler [Xopenex Hfa Inhaler] 2 puff INHALATION RT-QID PRN PRN Reason: Shortness Of Breath Metoprolol Succinate (ER) [Toprol XL] 50 mg PO DAILY Omeprazole [PriLOSEC] 40 mg PO DAILY cycloSPORINE [Restasis] 1 drop BOTH EYES BID Fluticasone/Umeclidin/Vilanter [Trelegy Ellipta 200-62.5-25] 1 puff INHALATION RT-DAILY Cyanocobalamin (Vitamin B-12) [Vitamin B-12] 1,000 mcg PO DAILY Acetaminophen Tab [Tylenol] 1,000 mg PO BID predniSONE 10 mg PO Q48H Biotin [Biotin Disolve] 10,000 mcg PO DAILY Apixaban [Eliquis] 2.5 mg PO BID Albuterol Nebulized [Ventolin Nebulized] 2.5 mg INHALATION RT-QID Discharge Medication List Atorvastatin [Lipitor] 20 mg PO HS 04/15/17 [History] Levothyroxine Sodium [Synthroid] 50 mcg PO DAILY 04/15/17 [History] Montelukast [Singulair] 10 mg PO HS 04/15/17 [History] Levalbuterol Hfa Inhaler [Xopenex Hfa Inhaler] 2 puff INHALATION RT-QID PRN 07/10/19 [History] Metoprolol Succinate (ER) [Toprol XL] 50 mg PO DAILY 07/10/19 [History] Omeprazole [PriLOSEC] 40 mg PO DAILY 07/10/19 [History] cycloSPORINE [Restasis] 1 drop BOTH EYES BID 07/10/19 [History] Acetaminophen Tab [Tylenol] 1,000 mg PO BID 02/25/22 [History] Albuterol Nebulized [Ventolin Nebulized] 2.5 mg INHALATION RT-QID 02/25/22 [History] Apixaban [Eliquis] 2.5 mg PO BID 02/25/22 [History] Biotin [Biotin Disolve] 10,000 mcg PO DAILY 02/25/22 [History] Cyanocobalamin (Vitamin B-12) [Vitamin B-12] 1,000 mcg PO DAILY 02/25/22 [History] Fluticasone/Umeclidin/Vilanter [Trelegy Ellipta 200-62.5-25] 1 puff INHALATION RT-DAILY 02/25/22 [History] predniSONE 10 mg PO Q48H 02/25/22 [History] Ipratropium-Albuterol Nebulize [Duoneb 0.5 mg-3 mg/3 ml Soln] 3 ml INHALATION RT-QID PRN #20 each 02/28/22 [Rx] predniSONE 0 mg PO DAILY 16 Days #40 tab 02/28/22 [Rx] Follow up Appointment(s)/Referral(s): None,Stated [Primary Care Provider] - 1-2 days Moody Brice MD [STAFF PHYSICIAN] - 1 Week Patient Instructions/Handouts: Acute Bronchitis (GEN) Activity/Diet/Wound Care/Special Instructions: Patient needs to follow up with primary care provider, patient states her family will be recommending someone to her to see Continue on current inhalers Albuterol/ipratropium nebulized provided. Can be used in place of albuterol nebulized for as needed shortness of breath or wheezing. Complete oral steroid taper and resume prednisone 10 mg PO every other day. Discharge Disposition: HOME SELF-CARE
--- NOTE | 2022-03-03 14:43 | P.PN ---
Subjective Progress Note Date: 03/03/22 86-year-old female who does not have a family doctor. She sees my partner for her COPD/asthma. She presented to the emergency department on February 22, complaining of an upper respiratory tract infection, characterized by shortness breath, cough, wheezing, chest tightness, with minimal to no phlegm production. She's not been feeling well for about 10 days. Again, she has no primary. She does have a history of a large hiatal hernia. She's on room air. She's getting saline at 130 mL an hour. For her asthma at home, she takes Singulair, a rescue inhaler, nebulizer machine, and Trelegy. In addition to asthma, other medical history includes atrial fibrillation, deep venous thrombosis, GERD, h yperlipidemia, hypertension, urinary embolism, pneumonia, hypothyroidism, and previous heart catheterization. White count 7.9, hemoglobin 15.5, hematocrit 46.2, and platelet count normal. White urination studies are normal. Sodium 141, potassium 5.4, chlorides 108, CO2 24, BUN 20, and creatinine 1.22. AST 40. ALT 38. Testing for santos virus was negative. N-terminal proBNP was 585. Chest x-ray, and computed tomography scan of the chest abdomen and pelvis, only show a very large hiatal hernia, which the patient does know about. Progress note dated 02/26/2022. 86-year-old female seen yesterday in consultation. She sees one of my partners for her COPD/asthma. He doing a bit better today. She remains on 2 L. No IV fluids. She still very short of breath and wheezing. Her cough is a bit better. No new labs today as yet. Progress note dated 02/27/2022. 86-year-old female admitted with a diagnosis of COPD/asthma exacerbation. She is a bit better today than she was yesterday. In my opinion, not quite ready to go home. Her cough is a bit better. She still very short of breath with any activity. Sees my partner in the office for her COPD/asthma. She's on appropriate medications: Bronchodilators, and steroids. No new labs today. Patient is seen today 02/28/2022 in follow-up on the regular medical floor. She is currently sitting up in a chair at the bedside. Awake and alert in no acute distress. She is still somewhat bronchospastic and wheezy. She has a loose cough. She is maintaining good O2 saturations in the 90s on room air. Afebrile. She is continued on DuoNeb inhalations, Pulmicort and Perforomist inhalations, IV Solu-Medrol, Singulair. Eliquis for anticoagulation. The patient is seen today 03/03/2022 in follow-up on the regular medical floor. She is awake and alert in no acute distress. Sitting up in a chair at the bedside. She did undergo bronchoscopy with alveolar lavage yesterday. She was noted to have significant tracheobronchomalacia. She had a significant amount of thick retained secretions that were suctioned out. Cultures and pathology are pending. She is feeling quite a bit better and nearly back to her baseline. She continued on DuoNeb inhalations, Pulmicort and Perforomist inhalations, IV Solu-Medrol. She is also on Singulair. Anticoagulated with Eliquis. White count 11.5. Hemoglobin 13.3. Sodium 140. Potassium 4.5. BUN 36. Creatinine 1.3. Objective - Vital Signs Vital signs: Vital Signs Temp 97.5 F L 03/03/22 12:45 Pulse 98 03/03/22 13:03 Resp 16 03/03/22 12:45 BP 149/78 03/03/22 12:45 Pulse Ox 98 03/03/22 12:45 FiO2 Intake & Output 03/02/22 03/03/22 03/03/22 18:59 06:59 18:59 Intake Total 100 236 Balance 100 236 Weight 90.265 kg Intake: IV 100 Oral 236 Other: Voiding Method Toilet # Voids 1 2 2 - Exam GENERAL EXAM: Alert, pleasant 87-year-old female, on room air, comfortable in no apparent distress. HEAD: Normocephalic. EYES: Normal reaction of pupils, equal size. NOSE: Clear with pink turbinates. THROAT: No erythema or exudates. NECK: No masses, no JVD. CHEST: No chest wall deformity. LUNGS: Equal air entry with bilateral end expiratory wheeze, diminished CVS: S1 and S2 normal with no audible murmur, regular rhythm. ABDOMEN: No hepatosplenomegaly, normal bowel sounds, no guarding or rigidity. SPINE: No scoliosis or deformity SKIN: No rashes CENTRAL NERVOUS SYSTEM: No focal deficits, tone is normal in all 4 extremities. EXTREMITIES: There is no peripheral edema. No clubbing, no cyanosis. Periph eral pulses are intact. - Labs CBC & Chem 7: 03/03/22 05:20 03/03/22 05:20 Labs: Abnormal Lab Results - Last 24 Hours (Table) 03/03/22 03/03/22 Range/Units 05:20 05:20 WBC 11.51 H (4.50-10.00) X 10*3/uL MCV 97.6 H (80.0-97.0) fL Immature Gran # 0.16 H (0.00-0.04) X 10*3/uL Neutrophils # 10.28 H (1.80-7.70) X 10*3/uL Lymphocytes # 0.62 L (0.90-5.00) X 10*3/uL Eosinophils # 0 L (0.04-0.35) X 10*3/uL BUN 36.5 H (9.0-27.0) mg/dL Est GFR (CKD-EPI)AfAm 42.1 L (60.0-200.0) Est GFR (CKD-EPI)NonAf 36.3 L (60.0-200.0) BUN/Creatinine Ratio 28.08 H (12.00-20.00) Ratio Glucose 178 H (70-110) mg/dL ALT 48 H (8-44) U/L Total Protein 5.7 L (6.2-8.2) g/dL Microbiology - Last 24 Hours (Table) 02/27/22 10:54 Gram Stain - Preliminary Bronchial Washings - Random Bronchial Washings Culture - Preliminary 02/27/22 10:54 Fungal Culture - Preliminary Bronchial Washings - Random 02/27/22 10:54 Acid Fast Bacilli Culture - Preliminary Bronchial Washings - Random Assessment and Plan Assessment: Acute exacerbation of asthma, without pneumonia. She had been slow to progress. She did undergo bronchoscopy with BAL on 03/02/2022. Cultures pending. Large intrathoracic hiatal hernia causing basilar atelectasis. History of atrial fibrillation. History of DVT and pulmonary embolism. History of gastroesophageal reflux disease. History of hyperlipidemia. History of hypertension. Prior history of pneumonia. History of hypothyroidism. Remote history of tobacco use Plan: The patient was seen and evaluated Improved following bronchoscopy with BAL yesterday Cleared for discharge from the pulmonary standpoint Continue her home pulmonary medications Complete a prednisone taper Follow-up in the office in 1 week I have personally seen and examined the patient, performed the documentation and the assessment and plan as written. Number of minutes spent on the visit: 10. This is a joint evaluation that was done along with the nurse practitioner. The patient was bronchoscopy and therapeutic airway suctioning. Much improved. Less short of breath. The cultures are still pending from the bronchial alveolar lavage. The patient was discharged home today followed up on outpatient basis. I'm going to The patient back she did be any positivity and the bronchial alveolar lavage.
== END 2022-03-03 14:59 | disposition home or self-care (01) | DRG 202 ==
LOC: EC 20:02 → 6NMEDSUR 02-25 00:24 → OBSVTOIN 03-02 10:01
PROVIDERS: ADMIT Hospitalist; ATTEND Hospitalist
PROC: 0B978ZX Drainage of Left Main Bronchus, Via Natural or Artificial Opening Endoscopic, Diagnostic (ICD-10-PCS; 2022-03-02)
PROC: 0B918ZX Drainage of Trachea, Via Natural or Artificial Opening Endoscopic, Diagnostic (ICD-10-PCS; 2022-03-02)
PROC: 0B9F8ZX Drainage of Right Lower Lung Lobe, Via Natural or Artificial Opening Endoscopic, Diagnostic (ICD-10-PCS; principal; 2022-03-02 09:00)
DX: J45.21 Mild intermittent asthma with (acute) exacerbation (principal); I48.19 Other persistent atrial fibrillation; N17.9 Acute kidney failure, unspecified; T17.890A Other foreign object in other parts of respiratory tract causing asphyxiation, initial encounter; Z20.822 Contact with and (suspected) exposure to COVID-19; E87.5 Hyperkalemia; J39.8 Other specified diseases of upper respiratory tract; Z79.01 Long term (current) use of anticoagulants; R74.01 Elevation of levels of liver transaminase levels; M48.00 Spinal stenosis, site unspecified; K21.9 Gastro-esophageal reflux disease without esophagitis; E66.9 Obesity, unspecified; I10 Essential (primary) hypertension; Z68.37 Body mass index [BMI] 37.0-37.9, adult; E78.5 Hyperlipidemia, unspecified; M19.90 Unspecified osteoarthritis, unspecified site; G89.29 Other chronic pain; M54.50 Low back pain, unspecified; K44.9 Diaphragmatic hernia without obstruction or gangrene; E03.9 Hypothyroidism, unspecified; Z86.711 Personal history of pulmonary embolism; Z98.42 Cataract extraction status, left eye; Z98.41 Cataract extraction status, right eye; Z87.891 Personal history of nicotine dependence; Z90.710 Acquired absence of both cervix and uterus; Z79.890 Hormone replacement therapy
CPT/HCPCS: 31624; 36415; 71045; 71046; 71260; 74177; 80048; 80053; 83735; 83880; 84100; 84484; 85025; 85610; 85730; 87070; 87102; 87116; 87205; 87206; 87252; 87324; 87496; 87498; 87502; 87529; 87634; 87635; 87798; 88108; 88305; 89050; 93005; 94640; 94760; 96360; 96361; 99285

== ENCOUNTER → 2022-03-19 | Outpatient (CLI) | payer MEDICARE ==
[2022-03-19 19:46] LABS: Immunoglobulin E 9.49 IU/mL (0.00-114.00)
[2022-03-19 22:54] LABS: Aspergillus fumagatus IgE <0.10 kU/L
== END | disposition home or self-care (01) ==
LOC: LABWHC1 09:58
PROVIDERS: ATTEND Internal Medicine Critical Care Medicine
DX: J45.50 Severe persistent asthma, uncomplicated (principal)
CPT/HCPCS: 36415; 82785; 86003; 86606